=== PATIENT | female | born 1955 | race Caucasian/White ===

== ENCOUNTER → 2017-06-29 | Outpatient (CLI) | payer SELFPAY | PROVIDERS: Visit Provider Orthopaedic Surgery | DX: Z48.89 Encounter for other specified surgical aftercare (principal) | CPT/HCPCS: 73502 ==

== ENCOUNTER → 2017-12-10 07:29 | Outpatient (CLI) | payer SELFPAY ==
--- NOTE | 2017-12-10 07:36 | NVE_ITS ---
Venous Exam Indications: 729.5 Pain in limb. Patient denies trauma and states that her left leg began swelling and was painful beginning on 12/08/17. Palpable knots felt on the posterior and lateral aspect of left calf in varicose veins. IMPRESSIONS 1. No evidence of deep vein thrombosis involving the left lower extremity 2. Small superficial vein thrombosis involving the superficial varicose veins of the left lower extremity on the posterior, lateral aspect. History: Left lower extremity pain. Swelling of the left lower extremity. Varicose veins of the left lower extremity. Risk factors: Hypertension. Left lower extremity venous duplex evaluation. Doppler flow study including spectral analysis, color and sparrow scale imaging. Location: Vascular laboratory. Patient status: Outpatient. CRITICAL FINDINGS - Reported to: Dr. Obdulio Roa office - Read back and verified. - 12/10/17 - 08:30 - LLE SVT in varicose veins Tables: Venous flow and imaging: + +-------+ + Location Overall Flow properties + +-------+ + Left common femoral Patent Normal phasicity; spontaneous; normal augmentation; compressible + +-------+ + Left saphenofemoral junction Patent Compressible + +-------+ + Left profunda femoral Patent Compressible + +-------+ + Left femoral Patent Normal phasicity; spontaneous; normal augmentation; compressible + +-------+ + Left greater saphenous Patent Normal phasicity; spontaneous; normal augmentation; compressible + +-------+ + Left popliteal Patent Normal phasicity; spontaneous; normal augmentation; compressible + +-------+ + Left posterior tibial Patent Compressible + +-------+ + Left peroneal Patent Compressible + +-------+ + Left gastrocnemius Patent Compressible + +-------+ + Left soleal Patent Compressible + +-------+ + (Report amended ) Electronically signed by: Tong Posadas [id number]
== END ==
PROVIDERS: Family Provider Internal Medicine; PCP Internal Medicine; Visit Provider Internal Medicine
DX: M79.605 Pain in left leg (principal); M79.89 Other specified soft tissue disorders
CPT/HCPCS: 93971

== ENCOUNTER 2018-11-08 09:53 | Emergency (ER) | payer MEDICARE, OTHER, SELFPAY ==
[2018-11-08 09:59] VITALS: BP 166/92; PULSE 79; RESP 16; TEMP 36.5; O2SAT 97; BMI 27.6
[2018-11-08 10:05] VITALS: BP 166/92; PULSE 79; RESP 16; TEMP 36.5; O2SAT 97; BMI 27.6
--- NOTE | 2018-11-08 10:21 | HMH.EDUTC ---
[facility] [place] [facility] [place] Clinical Impression: Low back pain Qualifiers: Chronicity: unspecified Back pain laterality: left Sciatica presence: without sciatica Qualified Code(s): M54.5 - Low back pain UTI (urinary tract infection) Qualifiers: Urinary tract infection type: site unspecified Hematuria presence: without hematuria Qualified Code(s): N39.0 - Urinary tract infection, site not specified Disposition: Home, Self-Care Condition on Discharge: Good Instructions: DI for Chronic Pain -- Adult, Low Back Pain, DI for Low Back Pain, Etodolac, Nitrofurantoin, Urinary Tract Infection, Urine Culture Additional Instructions: *Increase fluids. Water not Soda or Tea *Start antibiotic immediately and be sure to take as ordered for the FULL length of time although you should start to see improvement over the next 48 hours *Pyridium as needed Remember this medication will turn your urine [place]. This is normal but it will stain what ever it gets on *You should not use Pyridium for more than 48 hours. If so , follow up with your primary physician to review urine culture and ensure that antibiotic is adequate for infection *Be SURE to follow up anytime for new or worsening symptoms with your family doctor. AND in 48 hours for urine culture results with your family doctor, if you do not have a doctor then you may call back to the [facility] for urine culture results and further treatment. We do recommend that you choose and establish care with a Primary Care Physician. AND follow up with them in 10-14 days to repeat UA to ensure infection is resolved and blood no longer present *Be sure to let your PCP know that we sent urine cultures from the [facility] so they can follow up to ensure that you area the on the correct antibiotic Call your doctor office and make appointment for 48 hours (2 days from today) to follow up and get the results of your urine culture and further treatment *Etodolac aydee 6 hours with meal as needed for pain/inflammation *Not additional anti-inflammatory like motrin, aleve, advil with the above amount of etodolac. You can still take Tylenol every 4 hours as needed if you need something else for pain * moist heat every 20 minutes 3-4 times a day to affected area Keep this area active, no movement leads to more stiffness, However take it easy and avoid heavy lifting pushing or pulling *Follow up with you family doctor if no improvement for further treatment and further evaluation of xray findings Prescriptions: Etodolac [Etodolac 200mg Cap] 200 mg PO Q6HP PRN #20 cap PRN Reason: Moderate Pain Nitrofurantoin Monohyd/M-Cryst [Macrobid 100 mg Capsule] 100 mg PO BID #14 cap Referrals: Miguel Mak [Primary Care Provider] - As needed Time of Disposition: 11:23 Medical Decision Making - [place] Inquiry Pt receiving controlled substance: No [place] was queried for this patient: No Vital Signs: 11/08/18 09:59 11/08/18 10:05 Temperature 97.7 F 97.7 F Temperature Source Oral Oral Pulse Rate [Left Radial] 79 79 Respiratory Rate 16 16 Blood Pressure [Right Arm] 166/92 H 166/92 H Blood Pressure Mean [Right Arm] 116 116 Blood Pressure Source [Right Arm] Automatic Cuff Automatic Cuff Blood Pressure Position [Right Arm] Sitting Sitting 02 Sat by Pulse Oximetry 97 97 Oxygen Delivery Method Room Air Room Air - Lab Data Lab Results 11/08/18 10:52: Urine Color Yellow, Urine Appearance Clear, Urine pH 6.0, Ur Specific [place] 1.025, Urine Protein Negative, Urine Glucose (UA) Negative, Urine Ketones Negative, Urine Blood 1+, Urine Nitrate Negative, Urine Bilirubin Negative, Urine Urobilinogen 0.2, Ur Leukocyte Esterase Trace Orders (Tests/Meds): ORDERS Category Date Time Status Urine Culture Stat Micro 11/08/18 10:59 Ordered - Radiology Data #1 Image(s): L-Spine Image Reviewed: Yes I have reviewed radiologist's interpretation IMPRESSION: 1. Lumbar spondylosis with scoliosis and multilevel degenerative disc disease and facet art
--- NOTE | 2018-11-08 10:23 | XR_ITS ---
EXAM: XR lumbar spine 2-3V HISTORY: ITS.REASON: left side lower back pain ORDERING PHYSICIAN: Lucy Nair APRN PATIENT AGE: 63 years COMPARISON: 08/23/2018 FINDINGS: Levoscoliosis of the lumbar spine is noted with multilevel degenerative disc disease. There is 6 mm anterolisthesis of L3 on L4 with degenerative disc disease at that level. There is moderate wedging of L1 which has slightly increased since the previous exam. There is 50% wedge compression changes of L1 anteriorly with kyphosis at that level. Facet arthritic changes are also noted in the lower lumbar spine. Faint calcifications are present in the right upper quadrant consistent with gallstones. There is an old right rib fracture and old left 10th rib fracture. There is generalized vascular calcification. IMPRESSION: 1. Lumbar spondylosis with scoliosis and multilevel degenerative disc disease and facet arthritic change. 2. Slight increase wedge compression changes of L2. 3. Cholelithiasis
--- NOTE | 2018-11-08 10:25 | ED_ITS ---
[facility] – [place] Disposition Clinical Impression: Low back pain Qualifiers: Chronicity: unspecified Back pain laterality: left Sciatica presence: without sciatica Qualified Code(s): M54.5 - Low back pain UTI (urinary tract infection) Qualifiers: Urinary tract infection type: site unspecified Hematuria presence: without hematuria Qualified Code(s): N39.0 - Urinary tract infection, site not specified Disposition: Home, Self-Care Condition on Discharge: Good Instructions: DI for Chronic Pain -- Adult, Low Back Pain, DI for Low Back Pain, Etodolac, Nitrofurantoin, Urinary Tract Infection, Urine Culture Additional Instructions: *Increase fluids. Water not Soda or Tea *Start antibiotic immediately and be sure to take as ordered for the FULL length of time although you should start to see improvement over the next 48 hours *Pyridium as needed Remember this medication will turn your urine [place]. This is normal but it will stain what ever it gets on *You should not use Pyridium for more than 48 hours. If so , follow up with your primary physician to review urine culture and ensure that antibiotic is adequate for infection *Be SURE to follow up anytime for new or worsening symptoms with your family doctor. AND in 48 hours for urine culture results with your family doctor, if you do not have a doctor then you may call back to the [facility] for urine culture results and further treatment. We do recommend that you choose and establish care with a Primary Care Physician. AND follow up with them in 10-14 days to repeat UA to ensure infection is resolved and blood no longer present *Be sure to let your PCP know that we sent urine cultures from the [facility] so they can follow up to ensure that you area the on the correct antibiotic Call your doctor office and make appointment for 48 hours (2 days from today) to follow up and get the results of your urine culture and further treatment *Etodolac aydee 6 hours with meal as needed for pain/inflammation *Not additional anti-inflammatory like motrin, aleve, advil with the above luis unt of etodolac. You can still take Tylenol every 4 hours as needed if you need something else for pain * moist heat every 20 minutes 3-4 times a day to affected area Keep this area active, no movement leads to more stiffness, However take it easy and avoid heavy lifting pushing or pulling *Follow up with you family doctor if no improvement for further treatment and further evaluation of xray findings Prescriptions: Etodolac [Etodolac 200mg Cap] 200 mg PO Q6HP PRN #20 cap PRN Reason: Moderate Pain Nitrofurantoin Monohyd/M-Cryst [Macrobid 100 mg Capsule] 100 mg PO BID #14 cap Referrals: Mgiuel Mak [Primary Care Provider] - As needed Time of Disposition: 11:23 Medical Decision Making - [place] Inquiry Pt receiving controlled substance: No [place] was queried for this patient: No Vital Signs: 11/08/18 09:59 11/08/18 10:05 Temperature 97.7 F 97.7 F Temperature Source Oral Oral Pulse Rate [Left Radial] 79 79 Respiratory Rate 16 16 Blood Pressure [Right Arm] 166/92 H 166/92 H Blood Pressure Mean [Right Arm] 116 116 Blood Pressure Source [Right Arm] Automatic Cuff Automatic Cuff Blood Pressure Position [Right Arm] Sitting Sitting 02 Sat by Pulse Oximetry 97 97 Oxygen Delivery Method Room Air Room Air - Lab Data Lab Results 11/08/18 10:52: Urine Color Yellow, Urine Appearance Clear, Urine pH 6.0, Ur Specific [place] 1.025, Urine Protein Negative, Urine Glucose (UA) N
[2018-11-08 10:58] LABS: Apearance,Urine Clear (Clear); Color,Urine Yellow (Yellow)
[2018-11-08 10:59] LABS: Bilirubin,Urine Negative (Negative); Blood, Urine 1+ (Negative); Glucose,Urine (UA) Negative (Negative); Ketones,Urine Negative (Negative); Protein,Urine Negative (Negative); Specific Gravity, Urine 1.025 (1.005-1.030); UTC Leukocyte Esterase,Urine Trace (Negative); UTC Nitrate,Urine Negative (Negative); Urobilinogen,Urine 0.2 EU/dl (0.2)
[2018-11-08 11:27] VITALS: BP 166/92; PULSE 79; RESP 16; TEMP 36.5; O2SAT 97
== END 2018-11-08 11:36 | disposition home or self-care (01) ==
PROVIDERS: Emergency Provider Nurse Practitioner; PCP Internal Medicine
DX: N30.00 Acute cystitis without hematuria (principal)
CPT/HCPCS: 72100; 81003; 87086; 99202

== ENCOUNTER 2018-11-08 21:51 | Emergency (ER) | payer MEDICARE, OTHER, SELFPAY ==
[2018-11-08 21:57] VITALS: BMI 28.7
--- NOTE | 2018-11-08 21:57 | CT_ITS ---
CT abdomen pelvis wo con CLINICAL INDICATION: Vomiting, abdominal pain, left flank pain with vomiting ITS.REASON: Left flank pain ORDERING PHYSICIAN: Carlos Velasco MD PATIENT AGE: 63 years COMPARISON: None TECHNIQUE: Axial images obtained with sagittal and coronal reformats. All CT scans at the facility use one or more dose reduction, viz: automated exposure control, ma/kV adjustment per patient size (including targeted exams where dose is matched to indication, i.e. head), or iterative reconstruction technique. PROCEDURE: Oral Contrast: None IV Contrast: None . FINDINGS: There are mild atelectatic changes in the left lung base. Multiple gallstones are present within the mildly distended gallbladder. The liver, spleen, adrenal glands, and pancreas have an unremarkable unenhanced appearance. No renal or ureteral calculi. 12 mm isodense involves the right kidney posteriorly consistent with a renal cyst. Calcification involves the aortoiliac vessels with minimal dilatation of the right common iliac and 1.8 cm. No intestinal obstruction or free air. Artifact is present from left hip prosthesis. There is diverticulosis of the sigmoid colon but no evidence of diverticulitis. The appendix has an unremarkable appearance. There are degenerative changes of the lumbar spine with moderate wedging of L1 with osteosclerosis of L1 and mild retrolisthesis of the posterior superior aspect of L1. This which appears chronic. IMPRESSION: 1. Cholelithiasis with mildly distended gallbladder. 2. No renal or ureteral calculi.
[2018-11-08 22:05] LABS: Microscopic, Urine URINE MICROSCOPIC (MICROSCOPIC)
[2018-11-08 22:06] LABS: Appearance,Urine CLEAR (Clear); Blood, Urine TRACE-I (Negative); Color,Urine YELLOW (Yellow); Glucose,Urine (UA) Negative (Negative); Ketones,Urine TRACE (Negative); Leukocyte Esterase,Urine TRACE (Negative); Nitrate,Urine Negative (Negative); Protein,Urine Negative (Negative); Urobilinogen,Urine 0.2 EU/dl (0.2)
[2018-11-08 22:10] LABS: Bilirubin,Urine Negative (Negative)
[2018-11-08 22:15] LABS: Basophils % 0.4 % (0.1-2.0); Eosinophils # 0.1 K/mm3 (0.0-0.4); Eosinophils % 1.4 % (0.1-12.0); Hematocrit 38.9 % (37.0-47.0); Hemoglobin 12.9 g/dL (12.2-16.2); Lymphocytes # 1.9 K/mm3 (0.7-4.5); Lymphocytes % 18.5 % (10-50); Mean Corpuscular HGB Conc 33.1 g/dL (31.8-35.4); Mean Corpuscular Hemoglobin 29.9 pg (27.0-31.2); Mean Corpuscular Volume 90.2 fl (81-99); Mean Platelet Volume 7.6 fl (7.4-10.4); Monocytes # 0.7 K/mm3 (0.1-1.0); Monocytes % 6.4 % (1.7-9.3); Neutrophils # 7.6 K/mm3 (1.8-7.8); Neutrophils % 73.4 % (37.0-80.0); Platelet Count 292 K/mm3 (142-424); Red Blood Count 4.31 M/mm3 (4.20-5.40); Red Cell Distribution Width 13.3 % (11.5-17.5); White Blood Count 10.4 K/mm3 (4.8-10.8)
[2018-11-08 22:28] LABS: Alanine Aminotransferase 18 U/L (12-78); Albumin Level 3.9 gm/dL (3.4-5.0); Albumin/Globulin Ratio 1.1 (1.1-1.8); Alkaline Phosphatase 79 U/L (46-116); Amylase 99 U/L (25-115); Anion Gap 9.8 mEq/L (5-15); Aspartate Amino Transferase 15 U/L (15-37); Bilirubin,Total 0.6 mg/dL (0.2-1.0); Blood Urea Nitrogen 22 mg/dL (7-18); C-Reactive Protein 5.4 mg/L (0.0-0.9); Calcium 8.9 mg/dL (8.5-10.1); Carbon Dioxide 31 mmol/L (21.0-32.0); Chloride 100 mmol/L (98-107); Creatinine Clearance Estimated 71 mL/min (50-200); Creatinine,Serum 0.93 mg/dL (0.55-1.02); Estimated Glomerular Filt Rate 61 ml/min (>60); GFR (African American) 73 ML/MIN (>60); Globulin 3.6 gm/dl (1.3-3.2); Glucose 101 mg/dL (74-106); Lipase 150 u/L (73-393); Potassium 3.8 mmoL/L (3.5-5.1); Sodium 137 mmol/L (136-145); Total Protein,Serum 7.5 gm/dL (6.4-8.2)
[2018-11-08 22:31] LABS: Lactic Acid 0.9 mmol/L (0.4-2.0)
[2018-11-08 22:42] VITALS: BP 136/84; PULSE 84; RESP 16; TEMP 37.1; O2SAT 94; BMI 28.7
[2018-11-08 22:56] LABS: Erythrocyte Sedimentation Rate 19 mm/hr (0-30)
--- NOTE | 2018-11-09 00:17 | HMH.EDUROGF ---
ED Disposition Clinical Impression: Acute flank pain Disposition: Home, Self-Care Condition on Discharge: Good Instructions: DI for Flank Pain Additional Instructions: use meds and see pcp and follow up on urine culture Referrals: Miguel Mak [Primary Care Provider] - - Critical Care Critical Care Time: No Attestation: On 11/08/18, the high probability of a clinically significant, sudden or life threatening deterioration of the following system(s) required my full and direct attention, intervention and personal management. The time I documented below is in addition to time spent performing reported procedures but includes the following listed in this critical care notation. Medical Decision Making - Medical Records Medical records reviewed: Yes: I reviewed the patient's medical records. - [place] Inquiry Pt receiving controlled substance: No Vital Signs: 11/08/18 22:42 Temperature 98.8 F Temperature Source Oral Pulse Rate [Right] 84 Respiratory Rate 16 Blood Pressure [Right Arm] 136/84 Blood Pressure Mean [Right Arm] 101 Blood Pressure Source [Right Arm] Automatic Cuff Blood Pressure Position [Right Arm] Supine 02 Sat by Pulse Oximetry 94 L Oxygen Delivery Method Room Air - Lab Data Lab results reviewed: Yes: I reviewed the patient's lab results. Lab Results 11/08/18 22:00: Urine Color Yellow, Urine Appearance Clear, Urine pH 6.0, Ur Specific [place] 1.020, Urine Protein Negative, Urine Glucose (UA) Negative, Urine Ketones Trace, Urine Blood Trace-i, Urine Nitrate Negative, Urine Bilirubin Negative, Urine Urobilinogen 0.2, Ur Leukocyte Esterase Trace, Urine RBC 5-10, Urine WBC 3-5, Ur Squamous Epith Cells 5-10 11/08/18 22:05: WBC 10.4, RBC 4.31, Hgb 12.9, Hct 38.9, MCV 90.2, MCH 29.9, MCHC 33.1, RDW 13.3, Plt Count 292, MPV 7.6, Neut % (Auto) 73.4, Lymph % (Auto) 18.5, [place] % (Auto) 6.4, Eos % (Auto) 1.4, Baso % (Auto) 0.4, Neut # (Auto) 7.6, Lymph # (Auto) 1.9, [place] # (Auto) 0.7, Eos # (Auto) 0.1, Baso # (Auto) 0.0, ESR 19 11/08/18 22:05: Sodium 137, Potassium 3.8, Chloride 100, Carbon Dioxide 31, Anion Gap 9.8, BUN 22 H, Creatinine 0.93, Estimated Creat Clear 71, Estimated GFR 61, Est GFR ( Amer) 73, Glucose 101, Calcium 8.9, Total Bilirubin 0.6, AST 15, ALT 18, Alkaline Phosphatase 79, C-Reactive Protein 5.4 H, Total Protein 7.5, Albumin 3.9, Globulin 3.6 H, Albumin/Globulin Ratio 1.1, Amylase 99, Lipase 150 11/08/18 22:05: Lactate 0.9 Result diagrams: 11/08/18 22:05 11/08/18 22:05 Orders (Tests/Meds): ED MEDICATIONS Generic Name Dose Route Start Last Admin Trade Name Freq PRN Reason Stop Dose Admin Sodium Chloride 1,000 mls @ 999 mls/hr 11/08/18 22:30 11/08/18 22:20 Sod Chlor 0.9% 1000ml Bag IV 11/08/18 23:30 999 mls/hr .Q1H1M MELITON Administration Discontinued Medications Generic Name Dose Route Start Last Admin Trade Name Freq PRN Reason Stop Dose Admin Morphine Sulfate 4 mg 11/08/18 22:18 11/08/18 22:20 Morphine 4mg/Ml Syringe IV 11/08/18 22:19 4 mg ONCE ONE Administration Ondansetron HCl 4 mg 11/08/18 22:18 11/08/18 22:20 Zofran 4mg/2ml Vial IV 11/08/18 22:19 4 mg ONCE ONE Administration ORDERS Category Date Time Status CT abdomen pelvis wo con Stat Cat Scan 11/08/18 21:57 Taken - CT Data CT Scan: Abdomen, Pelvis Time Received: 00:[address] Reviewed: Yes: I have viewed the radiologist's interpretation Preliminary Findings: Abnormal (see report) Female Urogenital HPI - General Chief complaint: Abdominal Pain Stated complaint: vomiting/pain in kidneys Time Seen by Provider: 11/09/18 00:00 Mode of Arrival: Ambulatory Source of Information: Patient, Spouse, Medical Record Limitations: No Limitations Description of Symptoms (Recalled from ER Triage Doc. by RN): Pt seen here for same this AM has appointment to F/U with Dr Mak continues to be in pain to left flank - History of Present Illness HPI Narrative: lt fl
--- NOTE | 2018-11-09 00:20 | ED_ITS ---
ED Disposition Clinical Impression: Acute flank pain Disposition: Home, Self-Care Condition on Discharge: Good Instructions: DI for Flank Pain Additional Instructions: use meds and see pcp and follow up on urine culture Referrals: Miguel Mak [Primary Care Provider] - - Critical Care Critical Care Time: No Attestation: On 11/08/18, the high probability of a clinically significant, sudden or life threatening deterioration of the following system(s) required my full and direct attention, intervention and personal management. The time I documented below is in addition to time spent performing reported procedures but includes the following listed in this critical care notation. Medical Decision Making - Medical Records Medical records reviewed: Yes: I reviewed the patient's medical records. - [place] Inquiry Pt receiving controlled substance: No Vital Signs: 11/08/18 22:42 Temperature 98.8 F Temperature Source Oral Pulse Rate [Right] 84 Respiratory Rate 16 Blood Pressure [Right Arm] 136/84 Blood Pressure Mean [Right Arm] 101 Blood Pressure Source [Right Arm] Automatic Cuff Blood Pressure Position [Right Arm] Supine 02 Sat by Pulse Oximetry 94 L Oxygen Delivery Method Room Air - Lab Data Lab results reviewed: Yes: I reviewed the patient's lab results. Lab Results 11/08/18 22:00: Urine Color Yellow, Urine Appearance Clear, Urine pH 6.0, Ur Specific [place] 1.020, Urine Protein Negative, Urine Glucose (UA) Negative, Urine Ketones Trace, Urine Blood Trace-i, Urine Nitrate Negative, Urine Bilirubin Negative, Urine Urobilinogen 0.2, Ur Leukocyte Esterase Trace, Urine RBC 5-10, Urine WBC 3-5, Ur Squamous Epith Cells 5-10 11/08/18 22:05: WBC 10.4, RBC 4.31, Hgb 12.9, Hct 38.9, MCV 90.2, MCH 29.9, MCHC 33.1, RDW 13.3, Plt Count 292, MPV 7.6, Neut % (Auto) 73.4, Lymph % (Auto) 18.5, [place] % (Auto) 6.4, Eos % (Auto) 1.4, Baso % (Auto) 0.4, Neut # (Auto) 7.6, Lymph # (Auto) 1.9, [place] # (Auto) 0.7, Eos # (Auto) 0.1, Baso # (Auto) 0.0, ESR 19 11/08/18 22:05: Sodium 137, Potassium 3.8, Chloride 100, Carbon Dioxide 31, Anion Gap 9.8, BUN 22 H, Creatinine 0.93, Estimated Creat Clear 71, Estimated GFR 61, Est GFR ( Amer) 73, Glucose 101, Calcium 8.9, Total Bilirubin 0.6, AST 15, ALT 18, Alkaline Phosphatase 79, C-Reactive Protein 5.4 H, Total Protein 7.5, Albumin 3.9, Globulin 3.6 H, Albumin/Globulin Ratio 1.1, Amylase 99, Lipase 150 11/08/18 22:05: Lactate 0.9 Result diagrams: 11/08/18 22:05 11/08/18 22:05 Orders (Tests/Meds): ED MEDICATIONS Generic Name Dose Route Start Last Admin Trade Name Freq PRN Reason Stop Dose Admin Sodium Chloride 1,000 mls @ 999 mls/hr 11/08/18 22:30 11/08/18 22:20 Sod Chlor 0.9% 1000ml Bag IV 11/08/18 23:30 999 mls/hr .Q1H1M MEL[place]ON Administration Discontinued Medications Generic Name Dose Route Start Last Admin Trade Name Freq PRN Reason Stop Dose Admin Morphine Sulfate 4 mg 11/08/18 22:18 11/08/18 22:20 Morphine 4mg/Ml Syringe IV 11/08/18 22:19 4 mg ONCE ONE Administration Ondansetron HCl 4 mg 11/08/18 22:18 11/08/18 22:20 Zofran 4mg/2ml Vial IV 11/08/18 22:19 4 mg ONCE ONE Administration
[2018-11-09 00:26] VITALS: BP 140/80; PULSE 86; RESP 16; TEMP 37.1; O2SAT 96
== END 2018-11-09 00:38 | disposition home or self-care (01) ==
PROVIDERS: Emergency Provider Emergency Medicine; PCP Internal Medicine
DX: R10.12 Left upper quadrant pain (principal)
CPT/HCPCS: 72100; 74176; 80053; 81001; 81003; 82150; 83605; 83690; 85025; 85651; 86140; 87086; 96365; 96375; 99202; 99283; J2405

== ENCOUNTER → 2018-11-20 14:57 | Outpatient (CLI) | payer MEDICARE, OTHER, SELFPAY ==
--- NOTE | 2018-11-20 15:00 | MR_ITS ---
MR lumbar spine wo con, MR 3-d myelogram/MRCP HISTORY: Pt states low back pain on right and left side. Pain X 6 months. ITS.REASON: LOW BACK PAIN ORDERING PHYSICIAN: Miguel Mak PATIENT AGE: 63 years Comparison: X-Ray 11/08/18 TECHNIQUE: Standard multiplanar multiecho sequences are performed without contrast. 3-D MIP and myelographic images are also rendered and reviewed FINDINGS: The spinal cord is at the L2 level. Mild lumbar scoliosis convex left T10-T11: Degenerative disc disease with bulging disc. T11-T12: Degenerative disc disease with bulging disc with facet and ligamentum flavum hypertrophy. T12-L1: Degenerative disc disease with bulging disc. There is 50% wedge compression changes of L1 with bone marrow edema the posterior superior aspect of L1 of 4 mm. Facet and ligamentum flavum hypertrophy are noted with bilateral foraminal lateral recess narrowing. No cord compression. Type I. Endplate changes are present at T12-L1 anteriorly L1-L2: General disc disease with bulging disc with facet and ligamentum flavum hypertrophy with bilateral lateral recess and foraminal narrowing. L2-L3: Degenerative disc disease with bulging disc along with moderate to severe facet and ligamentum flavum hypertrophy with bilateral lateral recess and foraminal narrowing. There is transverse narrowing of the canal at this level at 10 mm. L3-L4: 5 mm anterolisthesis of L3 with degenerative disc disease and bulging disc with moderate to severe facet and ligamentum flavum hypertrophy with canal stenosis and moderate to severe bilateral lateral recess narrowing and bilateral foraminal narrowing. L4-L5: Degenerative disc disease with bulging disc along with facet and ligamentum flavum hypertrophy with mild bilateral lateral recess and foraminal narrowing. L5-S1: Degenerative disc disease with bulging disc with facet and ligamentum flavum hypertrophy. There is severe left-sided foraminal narrowing.. IMPRESSION: Abnormal MRI of lumbar spine. There is multilevel degenerative disc disease along with facet and ligamentum flavum hypertrophy with canal stenosis and bilateral lateral recess and foraminal narrowing. PLEASE SEE ABOVE FOR DETAILED DESCRIPTION AT EACH LEVEL. 50% wedge compression changes of L1 with some bone marrow edema. The wedge compression changes. Appear slightly greater on the previous plain film.
== END ==
PROVIDERS: PCP Internal Medicine; Visit Provider Internal Medicine
DX: M54.42 Lumbago with sciatica, left side (principal)
CPT/HCPCS: 72148; 76376

== ENCOUNTER → 2018-11-28 10:05 | Outpatient (POV) | payer MEDICARE, OTHER, SELFPAY ==
[2018-11-28 10:36] VITALS: BP 132/78; PULSE 74; RESP 18; O2SAT 98
--- NOTE | 2018-11-28 10:45 | HMH.PMCON ---
Assessment and Plan (1) Closed compression fracture of body of L1 vertebra Current visit: Yes Status: Acute Category: Medical Code(s): S32.010A - Wedge compression fracture of first lumbar vertebra, initial encounter for closed fracture - Assessment and plan all Dx Assessment and Plan for all problems:: We will order her back brace to help with her pain symptoms. We will also seek approval for a L1 balloon kyphoplasty. HPI - Data of Consult Patient: new to practice Consult date: 11/28/18 Requesting Physician: Devante Christianson MD Primary Care Provider: Miguel Mak - Consult Narrative Reason for consult: Compression fracture History of present illness: Ms. Snow is a 63 year old female who has a long history of osteoporosis and degenerative changes throughout the lumbar spine. 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 She has had a fall and fractured her right hip. She is had surgery on this.She is probably needing a knee replacement and possibly a hip replacement. She does not recall a recent fall however is noticed acute increase in mid to low back pain. On MRI dated 11/20/2018 there is a L1 compression fracture with 50% wedge compression changes and bone marrow edema indicative of an acute compression fracture. She also has facet and ligamentum hypertrophy noted at this level as well. We will order bracing for her and seek approval for L1 kyphoplasty. CC: Devante Christianson MD [facility] History I have reviewed the patient's past medical history: Yes Medical History: Reports:: Hypertension Denies:: Cancer, Diabetes Mellitus Type 1, Diabetes Mellitus Type 2, MRSA *Have you ever received a pneumonia vaccine?: No *Have you received a flu vaccine this season?: Yes Amputation: No Fractures: No - *Social History Smoking Status: Current every day smoker Tobacco Type: e-cigarettes # Packs/Day (cigarettes): 1 Alcohol Intake: never *Occupational Status:: retired Housing: house *Travel in the last 8 weeks: None - Psychiatric History Expresses thoughts of harming self/others: None Suicide Plan Description: No Plan Family Hx:: No significant family history Review of Systems - Review of Systems Review of systems:: pertinent systems reviewed and negative unless documented below - *Musculoskeletal Reports abnormal walking, Reports back pain Meds Home Medications Medication Instructions Recorded Confirmed Type Alendronate Sodium [Alendronate 70 mg PO . 11/28/18 11/28/18 History 35mg Tablet] Amlodipine Besylate [Amlodipine 5 mg PO DAILY 11/28/18 11/28/18 History 5mg tab] Gabapentin [Gabapentin 300mg Cap] 600 mg PO TID 11/28/18 11/28/18 History Levothyroxine Sodium 175 mcg PO DAILY 11/28/18 11/28/18 History [Levothyroxine 175mcg (0.175mg) Tab] Lisinopril/Hydrochlorothiazide 1 tab PO DAILY 11/28/18 11/28/18 History [Lisinopril-Hctz 20-12.5 mg Tab] Allergies Allergy/AdvReac Type Severity Reaction Status Date / Time No Known Allergies Allergy Verified 11/28/18 10:40 Objective Vital signs: Pulse Resp BP Pulse Ox 74 18 132/78 98 11/28/18 10:36 11/28/18 10:36 11/28/18 10:36 11/28/18 10:36 - Routine Back/Spine/Pelvis Exam Back/Spine: Present: vertebral tenderness Opioid Risk Tool - Opioid Risk Tool-Female Family hx alcohol abuse: N Family hx illegal drugs: N Family hx rx drug abuse: N Personal hx alcohol abuse: N Personal hx illegal drugs: N Personal hx rx drug abuse: N Age: 45+ Hx of sexual abuse: N Mental health issues-ADD,OCD,Bipolar, etc: N Hx of depression: N Female Risk Score: 0
--- NOTE | 2018-11-28 10:49 | P.CONS_ITS ---
Assessment and Plan (1) Closed compression fracture of body of L1 vertebra Current visit: Yes Status: Acute Category: Medical Code(s): S32.010A - Wedge compression fracture of first lumbar vertebra, initial encounter for closed fracture - Assessment and plan all Dx Assessment and Plan for all problems:: We will order her back brace to help with her pain symptoms. We will also seek approval for a L1 balloon kyphoplasty. HPI - Data of Consult Patient: new to practice Consult date: 11/28/18 Requesting Physician: Devante Christianson MD Primary Care Provider: Miguel Mak - Consult Narrative Reason for consult: Compression fracture History of present illness: Ms. Snow is a 63 year old female who has a long history of osteoporosis and degenerative changes throughout the lumbar spine. 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 She has had a fall and fractured her right hip. She is had surgery on this.She is probably needing a knee replacement and possibly a hip replacement. She does not recall a recent fall however is noticed acute increase in mid to low back pain. On MRI dated 11/20/2018 there is a L1 compression fracture with 50% wedge compression changes and bone marrow edema indicative of an acute compression fracture. She also has facet and ligamentum hypertrophy noted at this level as well. We will order bracing for her and seek approval for L1 kyphoplasty. CC: Devante Christianson MD [facility] History I have reviewed the patient's past medical history: Yes Medical History: Reports:: Hypertension Denies:: Cancer, Diabetes Mellitus Type 1, Diabetes Mellitus Type 2, MRSA *Have you ever received a pneumonia vaccine?: No *Have you received a flu vaccine this season?: Yes Amputation: No Fractures: No - *Social History Smoking Status: Current every day smoker Tobacco Type: e-cigarettes # Packs/Day (cigarettes): 1 Alcohol Intake: never *Occupational Status:: retired Housing: house *Travel in the last 8 weeks: None - Psychiatric History Expresses thoughts of harming self/others: None Suicide Plan Description: No Plan Family Hx:: No significant family history Review of Systems - Review of Systems Review of systems:: pertinent systems reviewed and negative unless documented below - *Musculoskeletal Reports abnormal walking, Reports back pain Meds Home Medications Medication Instructions Recorded Confirmed Type Alendronate Sodium [Alendronate 70 mg PO . 11/28/18 11/28/18 History 35mg Tablet] Amlodipine Besylate [Amlodipine 5 mg PO DAILY 11/28/18 11/28/18 History 5mg tab] Gabapentin [Gabapentin 300mg Cap] 600 mg PO TID 11/28/18 11/28/18 History Levothyroxine Sodium 175 mcg PO DAILY 11/28/18 11/28/18 History [Levothyroxine 175mcg (0.175mg) Tab] Lisinopril/Hydrochlorothiazide 1 tab PO DAILY 11/28/18 11/28/18 History [Lisinopril-Hctz 20-12.5 mg Tab] Allergies Allergy/AdvReac Type Severity Reaction Status Date / Time No Known Allergies Allergy Verified 11/28/18 10:40 Objective Vital signs: Pulse Resp BP Pulse Ox 74 18 132/78 98 11/28/18 10:36 11/28/18 10:36 11/28/18 10:36 11/28/18 10:36 - Routine Back/Spine/Pelvis Exam Back/Spine: Present: vertebral tenderness Opioid Risk Tool - Opioid
== END ==
PROVIDERS: PCP Internal Medicine; Visit Provider Anesthesiology
DX: S32.010A Wedge compression fracture of first lumbar vertebra, initial encounter for closed fracture (principal)
CPT/HCPCS: 99202

== ENCOUNTER 2018-12-06 17:22 | Emergency (ER) | payer MEDICARE, OTHER, SELFPAY ==
[2018-12-06 17:38] VITALS: BP 130/60; PULSE 96; RESP 20; TEMP 37; O2SAT 100; BMI 28.7
--- NOTE | 2018-12-06 17:38 | HMH.EDGENADL ---
ED Disposition <RizzoFritz - Last Filed: 12/06/18 19:48> Condition on Discharge: Good Time of Disposition: 22:14 - Critical Care Critical Care Time: No <LindseyCarlos - Last Filed: 12/06/18 22:15> Clinical Impression: Nausea & vomiting Disposition: Home, Self-Care Instructions: DI for Nausea -- Adult Referrals: Miguel Mak [Primary Care Provider] - Attestation: On 12/06/18, the high probability of a clinically significant, sudden or life threatening deterioration of the following system(s) required my full and direct attention, intervention and personal management. The time I documented below is in addition to time spent performing reported procedures but includes the following listed in this critical care notation. Medical Decision Making - Lab Data Result diagrams: 12/06/18 17:52 12/06/18 17:52 <Fritz Rizzo - Last Filed: 12/06/18 19:48> - Medical Records Medical records reviewed: Yes: I reviewed the patient's medical records. - [place] Inquiry Pt receiving controlled substance: No [place] was queried for this patient: No - Lab Data Lab results reviewed: Yes: I reviewed the patient's lab results. Result diagrams: 12/06/18 17:52 12/06/18 17:52 <Carlos Portillo - Last Filed: 12/06/18 22:15> Vital Signs: 12/06/18 17:38 12/06/18 17:54 12/06/18 18:43 Temperature 98.6 F Temperature Source Oral Pulse Rate [Left Radial] 96 H 103 H 75 Respiratory Rate 20 Blood Pressure [Right Arm] 130/60 138/93 H 169/89 H Blood Pressure Mean [Right Arm] 83 108 115 Blood Pressure Source [Right Arm] Automatic Cuff Blood Pressure Position [Right Arm] Sitting 02 Sat by Pulse Oximetry 100 96 95 Oxygen Delivery Method Room Air 12/06/18 20:27 12/06/18 21:00 Temperature 98.1 F Temperature Source Oral Pulse Rate [Left Radial] 68 61 Respiratory Rate 16 18 Blood Pressure [Right Arm] 134/87 Blood Pressure Mean [Right Arm] 102 Blood Pressure Source [Right Arm] Automatic Cuff Blood Pressure Position [Right Arm] Sitting 02 Sat by Pulse Oximetry 97 98 Oxygen Delivery Method Room Air Room Air - Lab Data Lab Results 12/06/18 17:52: WBC 14.0 H, RBC 4.97, Hgb 14.6, Hct 43.1, MCV 86.6, MCH 29.4, MCHC 33.9, RDW 13.1, Plt Count 348, MPV 7.1 L, Neut % (Auto) 82.4 H, Lymph % (Auto) 11.3, Ward % (Auto) 5.5, Eos % (Auto) 0.7, Baso % (Auto) 0.1, Neut # (Auto) 11.5 H, Lymph # (Auto) 1.6, Ward # (Auto) 0.8, Eos # (Auto) 0.1, Baso # (Auto) 0.0 12/06/18 17:52: Sodium 140, Potassium 3.3 L, Chloride 101, Carbon Dioxide 27, Anion Gap 15.3 H, BUN 25 H, Creatinine 0.80, Estimated Creat Clear 71, Estimated GFR 72, Est GFR ( Amer) 87, Glucose 119 H, Calcium 8.8, Total Bilirubin 0.6, AST 18, ALT 20, Alkaline Phosphatase 79, Troponin I < 0.02, Total Protein 7.4, Albumin 3.7, Globulin 3.7 H, Albumin/Globulin Ratio 1.0 L, Lipase 151 12/06/18 17:52: Lactate 1.3 12/06/18 19:47: Urine Color Yellow, Urine Appearance Clear, Urine pH 7.0, Ur Specific [place] 1.015, Urine Protein 1+, Urine Glucose (UA) Negative, Urine Ketones 1+, Urine Blood Trace-l, Urine Nitrate Negative, Urine Bilirubin Negative, Urine Urobilinogen 0.2, Ur Leukocyte Esterase Negative, Urine RBC 5-10, Urine WBC 5-10, Ur Squamous Epith Cells 3-5 Orders (Tests/Meds): ED MEDICATIONS Generic Name Dose Route Start Last Admin Trade Name Freq PRN Reason Stop Dose Admin Sodium Chloride 1,000 mls @ 999 mls/hr 12/06/18 17:45 12/06/18 17:50 Sod Chlor 0.9% 1000ml Bag IV 12/06/18 18:45 999 mls/hr .Q1H1M MELITON Administration Sodium Chloride 1,000 mls @ 999 mls/hr 12/06/18 20:30 12/06/18 20:26 Sod Chlor 0.9% 1000ml Bag IV 12/06/18 21:30 999 mls/hr .Q1H1M MELITON Administration Discontinued Medications Generic Name Dose Route Start Last Admin Trade Name Freq PRN Reason Stop Dose Admin Ondansetron HCl 4 mg 12/06/18 17:37 12/06/18 17:45 Zofran 4mg/2ml Vial IV 12/06/18 17:38 4 mg ONCE ONE Administration ORDERS Category Date Ti
[2018-12-06 17:54] VITALS: BP 138/93; PULSE 103; O2SAT 96
[2018-12-06 18:07] LABS: Basophils % 0.1 % (0.1-2.0); Eosinophils # 0.1 K/mm3 (0.0-0.4); Eosinophils % 0.7 % (0.1-12.0); Hematocrit 43.1 % (37.0-47.0); Hemoglobin 14.6 g/dL (12.2-16.2); Lymphocytes # 1.6 K/mm3 (0.7-4.5); Lymphocytes % 11.3 % (10-50); Mean Corpuscular HGB Conc 33.9 g/dL (31.8-35.4); Mean Corpuscular Hemoglobin 29.4 pg (27.0-31.2); Mean Corpuscular Volume 86.6 fl (81-99); Mean Platelet Volume 7.1 fl (7.4-10.4); Monocytes # 0.8 K/mm3 (0.1-1.0); Monocytes % 5.5 % (1.7-9.3); Neutrophils # 11.5 K/mm3 (1.8-7.8); Neutrophils % 82.4 % (37.0-80.0); Platelet Count 348 K/mm3 (142-424); Red Blood Count 4.97 M/mm3 (4.20-5.40); Red Cell Distribution Width 13.1 % (11.5-17.5)
[2018-12-06 18:17] LABS: Alanine Aminotransferase 20 U/L (12-78); Albumin Level 3.7 gm/dL (3.4-5.0); Alkaline Phosphatase 79 U/L (46-116); Anion Gap 15.3 mEq/L (5-15); Aspartate Amino Transferase 18 U/L (15-37); Bilirubin,Total 0.6 mg/dL (0.2-1.0); Blood Urea Nitrogen 25 mg/dL (7-18); Calcium 8.8 mg/dL (8.5-10.1); Carbon Dioxide 27 mmol/L (21.0-32.0); Chloride 101 mmol/L (98-107); Creatinine Clearance Estimated 71 mL/min (50-200); Estimated Glomerular Filt Rate 72 ml/min (>60); GFR (African American) 87 ML/MIN (>60); Globulin 3.7 gm/dl (1.3-3.2); Glucose 119 mg/dL (74-106); Lipase 151 u/L (73-393); Potassium 3.3 mmoL/L (3.5-5.1); Sodium 140 mmol/L (136-145); Total Protein,Serum 7.4 gm/dL (6.4-8.2); Troponin I < 0.02 ng/ml (0.00-0.06)
[2018-12-06 18:18] LABS: Lactic Acid 1.3 mmol/L (0.4-2.0)
[2018-12-06 18:43] VITALS: BP 169/89; PULSE 75; O2SAT 95
--- NOTE | 2018-12-06 19:33 | CT_ITS ---
CT abdomen pelvis wo con CLINICAL INDICATION: Nausea and vomiting with abdominal pain ITS.REASON: vomiting ORDERING PHYSICIAN: Fritz Rizzo MD PATIENT AGE: 63 years COMPARISON: None TECHNIQUE: Axial images obtained with sagittal and coronal reformats. All CT scans at the facility use one or more dose reduction, viz: automated exposure control, ma/kV adjustment per patient size (including targeted exams where dose is matched to indication, i.e. head), or iterative reconstruction technique. PROCEDURE: Oral Contrast: None IV Contrast: None . FINDINGS: Lower thorax: No acute finding ABDOMEN: The liver, spleen, adrenal glands, pancreas, and kidneys have an unremarkable unenhanced CT appearance. Gallbladder mildly distended with multiple stones. There is no stranding of the pericholecystic fat. Atherosclerotic changes involve the abdominal aorta with minimal ectasia of 2.3 cm.. No evidence of appendicitis. There is diverticulosis of the colon with no evidence of diverticulitis. Bowel gas pattern is nonspecific some fluid-filled loops of small bowel noted in the mid pelvic region and could be related to enteritis. Prior left hip arthroplasty with cannulated screw placement in the right hip. Prior L1 kyphoplasty with underlying anterior wedge compression deformity of L1 and 4 mm retropulsion of the posterior superior aspect. There is some extraosseous methylmethacrylate in the right lateral recess and mild local mass effect upon the thecal sac. There is anterolisthesis of L3 on L4 of 7 mm with canal stenosis at that level and bilateral lateral recess and foraminal narrowing. There is lumbar scoliosis convex left with left paravertebral osteophyte/bridging at T11-T12. IMPRESSION: 1. Possible enteritis. 2. Cholelithiasis with distended gallbladder. 3. Colonic diverticulosis. No evidence of diverticulitis. 4. Post kyphoplasty changes at L1 with wedging of L1 and retropulsion of the posterior superior aspect of L1 with some extraosseous methylmethacrylate noted in the right lateral recess.
[2018-12-06 19:52] LABS: Microscopic, Urine URINE MICROSCOPIC (MICROSCOPIC)
[2018-12-06 20:14] LABS: Appearance,Urine CLEAR (Clear); Blood, Urine TRACE-L (Negative); Color,Urine YELLOW (Yellow); Glucose,Urine (UA) Negative (Negative); Ketones,Urine 1+ (Negative); Leukocyte Esterase,Urine Negative (Negative); Nitrate,Urine Negative (Negative); Protein,Urine 1+ (Negative); Specific Gravity, Urine 1.015 (1.005-1.030); Urobilinogen,Urine 0.2 EU/dl (0.2)
[2018-12-06 20:15] LABS: Bilirubin,Urine Negative (Negative)
[2018-12-06 20:27] VITALS: BP 134/87; PULSE 68; RESP 16; TEMP 36.7; O2SAT 97
[2018-12-06 21:00] VITALS: PULSE 61; RESP 18; O2SAT 98
[2018-12-06 22:17] VITALS: BP 129/85; PULSE 61; RESP 18; TEMP 36.6; O2SAT 98
== END 2018-12-06 22:19 | disposition home or self-care (01) ==
PROVIDERS: Emergency Provider Emergency Medicine Emergency Medical Services; PCP Internal Medicine
DX: R11.2 Nausea with vomiting, unspecified (principal); I10 Essential (primary) hypertension; Z96.642 Presence of left artificial hip joint; F17.290 Nicotine dependence, other tobacco product, uncomplicated
CPT/HCPCS: 74176; 80053; 81001; 83605; 83690; 84484; 85025; 93005; 96365; 96366; 96375; 99284; J2405

== ENCOUNTER → 2018-12-23 11:02 | Outpatient (POV) | payer MEDICARE, OTHER, SELFPAY ==
[2018-12-23 11:17] VITALS: BP 132/75; PULSE 79; RESP 18; O2SAT 98; BMI 28.8
--- NOTE | 2018-12-23 11:32 | HMH.PAINSOAP ---
[facility] Pain Management SOAP Note Subjective:: Patient is a pleasant 63-year-old white female who presents today for follow-up after kyphoplasty. Patient states her pain is a 4 out of 10 however her severe back pain is completely resolved. Patient is now complaining of SI joint pain. Patient and I talked about anti-inflammatories. Patient would like to potentially do injections in the future however at this time she is doing well. ROS General: no recent weight change, no fever, no sleep disturbances Respiratory: no cough, no shortness of air, no recurring pulmonary infections Cardiovascular/Peripheral Vascular: No chest pain, No palpitations, no edema, no shortness of breath. Gastrointestinal: no incontinence, normal bowel movements reported Genitourinary: no incontinence Musculoskeletal: SI joint pain Psychiatric: normal mood/ affect Neurological: [denies weakness in extremities], [denies balance issues] Objective:: Physical Exam General: Alert and oriented x3, no acute distress, pleasant and cooperative, [on room air] Lungs: Resps E/U, Symmetrical chest expansion, Eyes: PERRL Musculoskeletal: Flexion and extension of lumbar spine somewhat guarded secondary to pain, deep tendon reflexes normal, strength in upper and lower extremities [5/5], [abnormal gait noted] SI joint compression test bilaterally Neurological: speech clear, manager hospice equal, no gross sensory deficits Assessment:: Status post kyphoplasty, sacral ileitis Plan:: We will follow-up with the patient on as-needed basis she is been instructed to call the office if she needs anything. Patient was given information in regards to NSAIDs. Dr. Christianson has reviewed this note and agrees with this plan of care. This note was dictated using voice recognition software and may contain errors or omissions
== END ==
PROVIDERS: PCP Internal Medicine; Visit Provider Clinical Nurse Specialist Family Health
DX: Z98.890 Other specified postprocedural states (principal); Z09 Encounter for follow-up examination after completed treatment for conditions other than malignant neoplasm; M46.1 Sacroiliitis, not elsewhere classified
CPT/HCPCS: 99212

== ENCOUNTER → 2019-02-17 11:15 | Outpatient (POV) | payer MEDICARE, OTHER, SELFPAY ==
--- NOTE | 2019-02-17 11:37 | HMH.PAINSOAP ---
[facility] Pain Management SOAP Note Subjective:: Patient is a pleasant 63-year-old white female who presents today for follow-up. Patient had a kyphoplasty and is done well since then however over the last few days she had extreme lower back pain. Notes better today. She rates her pain a 2 out of 10. We discussed anti-inflammatories and also discussed one with a stomach protectant and it due to her history of gastric issues. Patient will be given some samples of Vimovo. If she likes that we can call it in for her. Patient and I discussed getting some x-rays just to ensure that there is no new compression fractures. ROS General: no recent weight change, no fever, no sleep disturbances Respiratory: no cough, no shortness of air, no recurring pulmonary infections Cardiovascular/Peripheral Vascular: No chest pain, No palpitations, no edema, no shortness of breath. Gastrointestinal: no incontinence, normal bowel movements reported Genitourinary: no incontinence Musculoskeletal: Back pain Psychiatric: normal mood/ affect Neurological: [denies weakness in extremities], [denies balance issues] Objective:: Physical Exam General: Alert and oriented x3, no acute distress, pleasant and cooperative, [on room air] Lungs: Resps E/U, Symmetrical chest expansion, Eyes: PERRL Musculoskeletal: Flexion and extension of lumbar spine somewhat guarded secondary to pain, deep tendon reflexes normal, strength in upper and lower extremities [5/5], slightly antalgic gait noted Neurological: speech clear, dredge master equal, no gross sensory deficits Assessment:: Degenerative disc disease lumbar spine with history of compression fractures and status post kyphoplasty Plan:: We will send the patient for thoracic and lumbar x-ray to determine any new breaks. We will give her a sample of Vimovo to see if this is beneficial for her. Patient's been instructed to call the office if she has any issues prior to her next appointment. Dr. Christianson has reviewed this note and agrees with this plan of care. This note was dictated using voice recognition software and may contain errors or omissions Pain Management Hx Components *Have you ever received a pneumonia vaccine?: No *Have you received a flu vaccine this season?: No - *Social History *Occupational Status:: other *Travel in the last 8 weeks: None
[2019-02-17 11:43] VITALS: BP 136/78; PULSE 81; RESP 18; O2SAT 98
--- NOTE | 2019-02-17 11:58 | XR_ITS ---
PROCEDURE: XR THORACIC SPINE 3V CLINICAL INDICATION: BACK PAIN R/O FRACTURE COMPARISON: CXR CHEST(2 VIEWS-NOT PORTABLE) from 12/19/2016 SPLUMBLM XR lumbar spine 2-3V from 11/08/2018 XR LUMBAR SPINE MIN 4V from 02/17/2019 FINDINGS: Mild midthoracic scoliosis convex right with multilevel degenerative disc disease. No acute fracture of the thoracic spine evident. No lytic or blastic change. There is moderate wedging involving L1. Prior kyphoplasty at L1. IMPRESSION: Degenerate changes thoracic spine with dextroscoliosis Status post kyphoplasty at L1 with slight increase in wedge compression changes. There retropulsion of the posterior superior aspect of L1 with extrusion of methylmethacrylate along the anterior aspect of the canal. Consider CT for more thorough evaluation. Dictated by: Tong Posadas MD 02/18/2019 05:47 Signed by: <Electronically signed by Tong Posadas MD in [place]> 02/18/2019 05:47
--- NOTE | 2019-02-17 11:58 | XR_ITS ---
PROCEDURE: XR LUMBAR SPINE MIN 4V CLINICAL INDICATION: COMPARISON: SPLUMBLM XR lumbar spine 2-3V from 11/08/2018 TECHNIQUE: Five views FINDINGS: Mild lumbar curvature convex left. Multilevel degenerate disc disease from T10-S1. Moderate wedging at L1 slightly increased from 11/08/2018. Prior kyphoplasty at L1. Mild anterolisthesis L3 on L4 of 6 mm. Diffuse vascular calcification. Multiple small calcific foci in the right mid abdominal region consistent with gallstones. IMPRESSION: Status post kyphoplasty at L1 with slight increased wedging at L1. Multilevel degenerative changes. Cholelithiasis Dictated by: Tong Posadas MD 02/17/2019 16:49 Signed by: <Electronically signed by Tong Posadas MD in [place]> 02/17/2019 16:49
== END ==
LOC: SC.PAIN 11:16 → RAD 11:48
PROVIDERS: PCP Internal Medicine; Visit Provider Clinical Nurse Specialist Family Health
DX: M54.6 Pain in thoracic spine (principal); M54.5 Low back pain
CPT/HCPCS: 72072; 72110; 99212

== ENCOUNTER → 2019-02-24 14:41 | Outpatient (CLI) | payer MEDICARE, OTHER, SELFPAY ==
--- NOTE | 2019-02-24 14:46 | XR_ITS ---
PROCEDURE: XR FOOT WT BEARING LT 3V CLINICAL INDICATION: pain Arthritis COMPARISON: None FINDINGS: No fracture or dislocation. No lytic or blastic change. There is normal mineralization. There is moderate pes planus with severe osteoarthritic change of talonavicular joint, navicular cuneiform joint with mild osteoarthritis of the metatarsal tarsal joints. There is flattening of the navicular. Osteoarthritis of the 1st metatarsal phalangeal junction Other findings:No obvious fracture or dislocation. No bony destructive process IMPRESSION: Severe midfoot osteoarthritis with pes planus. There flattening of the navicular consistent with avascular necrosis Dictated by: Tong Posadas MD 02/24/2019 15:14 Signed by: <Electronically signed by Tong Posadas MD in [place]> 02/24/2019 15:14
--- NOTE | 2019-02-24 14:46 | XR_ITS ---
PROCEDURE: XR ANKLE WT BEARING RT MIN 3V CLINICAL INDICATION: pain Arthritis COMPARISON: No exams were available for comparison FINDINGS: There is an old fracture at the tip of the lateral malleolus with a well-circumscribed bony density at this area. The ankle joint shows mild osteoarthritic changes with slight decrease in the joint space and mild hypertrophic change of the anterior distal tibia. No acute fracture or dislocation. IMPRESSION: Mild osteoarthritis with old fracture of the distal fibula Dictated by: Tong Posadas MD 02/24/2019 15:17 Signed by: <Electronically signed by Tong Posadas MD in [facility]> 02/24/2019 15:17
--- NOTE | 2019-02-24 14:46 | XR_ITS ---
PROCEDURE: XR FOOT WT BEARING RT 3V CLINICAL INDICATION: pain Arthritis COMPARISON: No exams were available for comparison FINDINGS: No fracture or dislocation. No lytic or blastic change. There is normal mineralization. There are osteoarthritic changes at the tarsal metatarsal junction of digits 1 through 5. There are mild osteoarthritic changes of the navicular cuneiform joint and the talonavicular joint as well as the calcaneocuboid joint and the intercuneiform joints. No fracture or dislocation. Mild pes planus. Bony hypertrophy along the dorsal aspect of the midfoot at the tarsometatarsal junction. Flexion deformity involves the 2nd 3rd and 4th toes. Other findings:None. IMPRESSION: Osteoarthritic change with mild pes planus and hammertoe deformity Dictated by: Tong Posadas MD 02/24/2019 15:12 Signed by: <Electronically signed by Tong Posadas MD in [facility]> 02/24/2019 15:12
--- NOTE | 2019-02-24 14:46 | XR_ITS ---
PROCEDURE: XR ANKLE WT BEARING LT MIN 3V CLINICAL INDICATION: pain Bilateral feet and ankle pain, arthritis COMPARISON: No exams were available for comparison FINDINGS: Osteoarthritic changes are present at the ankle with decrease in the joint space and bony hypertrophic change along the medial malleolar region. There is an accessory center of ossification along the anterior aspect of the distal fibula. No acute fracture or dislocation. No lytic or blastic change. IMPRESSION: Mild osteoarthritis of the left ankle Dictated by: Tong Posadas MD 02/24/2019 15:10 Signed by: <Electronically signed by Tong Posadas MD in [facility]> 02/24/2019 15:10
== END ==
PROVIDERS: PCP Internal Medicine; Visit Provider Podiatrist
DX: M79.672 Pain in left foot (principal); M79.671 Pain in right foot; M25.572 Pain in left ankle and joints of left foot; M25.571 Pain in right ankle and joints of right foot
CPT/HCPCS: 73610; 73630

== ENCOUNTER → 2019-08-10 13:26 | Outpatient (CLI) | payer MEDICARE, OTHER, SELFPAY ==
--- NOTE | 2019-08-10 13:37 | XR_ITS ---
PROCEDURE: XR KNEE RT 3V CLINICAL INDICATION: RT KNEE PAIN COMPARISON: [id number] KNEE-4 OR 5 VIEWS-RT from 04/03/2017 FINDINGS: No fracture or dislocation. No lytic or blastic change. There is normal mineralization. There are tricompartmental osteoarthritic changes which are mild to moderate in nature. A oval lucency is present along the lateral femoral condyle consistent with an osteochondral defect. There is generalized vascular calcification. Other findings:None. IMPRESSION: Osteoarthritic change with oval lucency of the lateral femoral condyle measuring approximately 2 cm suspicious for prominent osteochondral defect. MRI may confirm Dictated by: Tong Posadas MD 08/10/2019 14:08 Electronically signed by Tong Posadas MD in [facility] 08/10/2019 14:08
== END ==
PROVIDERS: PCP Internal Medicine; Visit Provider Internal Medicine
DX: M25.561 Pain in right knee (principal)
CPT/HCPCS: 73562

== ENCOUNTER 2020-05-30 02:06 | Emergency (ER) | payer MEDICARE, OTHER, SELFPAY ==
[2020-05-30 02:08] VITALS: BP 124/72; PULSE 62; RESP 16; TEMP 36.7; O2SAT 96; BMI 26.9
[2020-05-30 02:17] VITALS: BMI 30.5
--- NOTE | 2020-05-30 02:20 | CT_ITS ---
PROCEDURE: CT CHEST WO CON CLINICAL INDICATION: felt pop in left rib area Left-sided chest pain COMPARISON: CT CT ANGIO CHEST from 05/05/2019 TECHNIQUE: Axial images obtained with sagittal and coronal reformats. All CT scans at the facility use one or more dose reduction, viz: automated exposure control, ma/kV adjustment per patient size (including targeted exams where dose is matched to indication, i.e. head), or iterative reconstruction technique. FINDINGS: HEART AND MEDIASTINAL STRUCTURES: There are numerous small opacities within the anterior mediastinum consistent with small lymph nodes which are not significantly changed. There are coronary artery calcifications present. There is tortuosity of the descending thoracic aorta LUNGS AND PLEURAL SPACES: Atelectatic and/or fibrotic change present in the left lung base with some adjacent patchy density which could represent developing area of infiltrate. BONY STRUCTURES: There are old bilateral rib fractures involving the right 3rd rib anteriorly, right 11th rib posteriorly, left 10th rib posteriorly. There is an age indeterminate right 5th rib fracture anteriorly. No definite acute fracture apparent. There are degenerative changes of the thoracic spine with thoracic scoliosis convex right. Prior vertebroplasty at L1 with chronic wedge compression changes at L1.. UPPER ABDOMEN: There is a right renal cyst at 2 cm. ADDITIONAL FINDINGS: No other significant abnormalities. IMPRESSION: Atelectatic and/or fibrotic change in the left lung base with some adjacent patchy density which could represent developing pneumonia. Old bilateral rib fractures. No acute fracture apparent Dictated by: Tong Posadas MD 05/30/2020 06:04 Tong Posadas MD in [place] 05/30/2020 06:05
--- NOTE | 2020-05-30 03:13 | HMH.EDGENADL ---
ED Disposition Clinical Impression: Costal chondritis Disposition: Home, Self-Care Condition on Discharge: Good Instructions: DI for Acute Pain -- Adult Additional Instructions: call pcp this am Referrals: Miguel Mak [Primary Care Provider] - - Critical Care Critical Care Time: No Attestation: On 05/30/20, the high probability of a clinically significant, sudden or life threatening deterioration of the following system(s) required my full and direct attention, intervention and personal management. The time I documented below is in addition to time spent performing reported procedures but includes the following listed in this critical care notation. Medical Decision Making - Medical Records Medical records reviewed: Yes: I reviewed the patient's medical records. - [place] Inquiry Pt receiving controlled substance: No Vital Signs: 05/30/20 02:08 Temperature 98.1 F Temperature Source Oral Pulse Rate [Left Radial] 62 Respiratory Rate 16 Blood Pressure [Right Arm] 124/72 Blood Pressure Mean [Right Arm] 89 Blood Pressure Source [Right Arm] Automatic Cuff Blood Pressure Position [Right Arm] Sitting 02 Sat by Pulse Oximetry 96 Oxygen Delivery Method Room Air Orders (Tests/Meds): ED MEDICATIONS Discontinued Medications Generic Name Dose Route Start Last Admin Trade Name Freq PRN Reason Stop Dose Admin Acetaminophen 1,000 mg 05/30/20 02:18 05/30/20 02:20 Acetaminophen 500mg Tab PO 05/30/20 02:19 1,000 mg ONCE ONE Administration ORDERS Category Date Time Status CT chest wo con Stat Cat Scan 05/30/20 02:20 Taken - CT Data CT Scan: Chest Time Received: 03:[address] Reviewed: Yes: I have viewed the radiologist's interpretation Preliminary Findings: No Fracture Seen General Adult HPI - General Chief complaint: PAIN Stated complaint: ? broken rib wants xray Time Seen by Provider: 05/30/20 02:30 Mode of Arrival: Ambulatory Source of Information: Patient, Medical Record Limitations: No Limitations Description of Symptoms (Recalled from ER Triage Doc. by RN): pt stated she was picking up a heavy load of laundry around 9pm when she felt a pop in her left rib under her breast area and reports pt reports breaking a rib in a similar fashion before and would like an Xray. pt stated she didnt take any medication for pain at home but would like some tylenol now. - History of Present Illness HPI narrative: pt with lt ant rib pain after lifting tonight - hx of prev rib fx - hx of osteoporosis - Onset (ago): hour(s) Location: chest Severity: moderate Associated symptoms: denies other symptoms - Related Data Home Medications Medication Instructions Recorded Confirmed Alendronate Sodium [Alendronate 70 mg PO . 11/28/18 06/08/19 35mg Tablet] Amlodipine Besylate [Amlodipine 5 mg PO DAILY 11/28/18 06/08/19 5mg tab] Lisinopril/Hydrochlorothiazide 1 tab PO DAILY 11/28/18 06/08/19 [Lisinopril-Hctz 20-12.5 mg Tab] gabapentin 600 mg tablet 600 mg PO QHS #90 tab 02/24/19 06/08/19 levothyroxine 150 mcg tablet 150 mcg PO DAILY #90 tab 02/24/19 06/08/19 Previous Rx's Medication Instructions Recorded meloxicam 7.5 mg tablet 7.5 mg PO DAILY 30 Days #30 tab 04/06/19 Hydrocodone/Acetaminophen [[place] 1 each PO Q4-6H PRN #9 tab 05/05/19 5-325 Tablet] meloxicam 7.5 mg tablet 7.5 mg PO DAILY 30 Days #30 tab 06/08/19 Allergies Allergy/AdvReac Type Severity Reaction Status Date / Time No Known Allergies Allergy Verified 06/08/19 11:51 [facility] History - Hepatitis A Screen Drug use history?: No High risk sexual behaviors?: No History of sexually transmitted infection?: No Currently employed?: No Childcare worker?: No Do you have indoor plumbing?: Yes Do you have electricity?: Yes Attestation statement:: This patient has been screened for Hepatitis A risk factors. I have reviewed the patient's past medical history: Yes Medical History: Reports:: Hypertensio
[2020-05-30 03:39] VITALS: BP 118/69; PULSE 65; RESP 15; TEMP 37; O2SAT 98
== END 2020-05-30 03:41 | disposition home or self-care (01) ==
PROVIDERS: Emergency Provider Emergency Medicine; PCP Internal Medicine
DX: M94.0 Chondrocostal junction syndrome [Tietze] (principal); X50.0XXA Overexertion from strenuous movement or load, initial encounter; Y92.019 Unspecified place in single-family (private) house as the place of occurrence of the external cause; I10 Essential (primary) hypertension; E03.9 Hypothyroidism, unspecified; F17.290 Nicotine dependence, other tobacco product, uncomplicated; M81.0 Age-related osteoporosis without current pathological fracture; Z90.710 Acquired absence of both cervix and uterus; Z96.642 Presence of left artificial hip joint
CPT/HCPCS: 71250; 99282

== ENCOUNTER → 2020-12-26 11:09 | Outpatient (CLI) | payer MEDICARE, OTHER, SELFPAY ==
[2020-12-26 11:14] LABS: Adenovirus F 40/41, stool Not Detected (NotDetected); Astrovirus Not Detected (NotDetected); Campylobacter Not Detected (NotDetected); Clostridium Difficile A/B, PCR Not Detected (NotDetected); Cryptosporidium Not Detected (NotDetected); Cyclospora Cayetanesis Not Detected (NotDetected); Entamoeba histolytica Not Detected (NotDetected); Enteroaggregative E coli Not Detected (NotDetected); Enteropathogenic E coli Not Detected (NotDetected); Enterotoxigenic E coli Not Detected (NotDetected); Giardia lamblia Not Detected (NotDetected); Norovirus Not Detected (NotDetected); Plesimonas Shigalloides, PCR Not Detected (NotDetected); Rotavirus A Not Detected (NotDetected); Salmonella, PCR Not Detected (NotDetected); Sapovirus Not Detected (NotDetected); Shiga-like toxin E coli Not Detected (NotDetected); Shigella Enterovasive E coli Not Detected (NotDetected); Vibrio Cholerae Not Detected (NotDetected); Vibrio, PCR Not Detected (NotDetected); Yersinia Entercolitica, PCR Not Detected (NotDetected)
== END ==
PROVIDERS: Visit Provider Internal Medicine
DX: R19.7 Diarrhea, unspecified
CPT/HCPCS: 87177; 87205; 87506

== ENCOUNTER → 2021-03-04 09:25 | Outpatient (CLI) | payer MEDICARE, OTHER, SELFPAY | PROVIDERS: Visit Provider Internal Medicine Gastroenterology | DX: Z01.812 Encounter for preprocedural laboratory examination (principal); Z20.822 Contact with and (suspected) exposure to COVID-19; Z12.11 Encounter for screening for malignant neoplasm of colon; R19.7 Diarrhea, unspecified | CPT/HCPCS: U0003 ==

== ENCOUNTER 2021-03-06 13:00 | Day surgery (SDC) | payer MEDICARE, OTHER, SELFPAY ==
[2021-03-02 14:43] VITALS: BMI 25.7
[2021-03-06 13:15] VITALS: BP 134/85; PULSE 76; RESP 18; TEMP 37.1; O2SAT 97
[2021-03-06 13:38] VITALS: O2SAT 98
--- NOTE | 2021-03-06 13:41 | HMH.ANESCL ---
[facility] Anesthesia Checklist - Patient Identification Patient Identification: Arm Band - Structural Data Admitted From: Home Planned Operative Procedure/s: colonoscopy Consent for Planned Operative Procedure(s) Verified: Yes Verified Documents: Surgical Consent, History and Physical - NPO Status Verified Time NPO: 00:00 - Additional verifications Anesthesia Reactions: No Hx Blood Transfusions: No Blood Transfusion Reaction: No - Airway Assessment C-Spine Mobility Assessed: Yes (mp2) TMJ Mobility Assessed: Yes Dentition: Edentulous - Neurological Assessment Level of Consciousness: Awake, Alert - Anesthesia Plan Anesthesia Risk discussed: Yes Anesthesia Plan: Verified ASA Class: II Anesthesia Type: MAC [facility] History I have reviewed the patient's past medical history: Yes Medical History: Reports:: Hypertension, Osteoporosis, Urinary Tract Infection Denies:: Cancer, Diabetes Mellitus Type 1, Diabetes Mellitus Type 2, Internal Pacemaker, MRSA, Seizures *Have you ever received a pneumonia vaccine?: Yes *Have you received a flu vaccine this season?: Yes Other Medical History: Reports: Arthritis (osteo), Osteoporosis, Thyroid Disease. Denies: Blood Transfusion Reaction Anesthesia experience/problems:: nac Laterality Cases: Left: Total Hip Replacement Other Surgeries: Yes: Hysterectomy-Total, Other. No: Pacemaker Amputation: No Fractures: No - *Social History Last grade of school completed: High school graduate Smoking Status: Current some day smoker Tobacco Type: e-cigarettes # Packs/Day (cigarettes): 1 Alcohol Intake: never Substance Use Type: denies use *Occupational Status:: employed Housing: house Household Members: spouse *Travel in the last 8 weeks: None Family Hx:: Cancer
--- NOTE | 2021-03-06 14:02 | HMH.PROC ---
[facility] Procedure Note Procedure Note:: Colonoscopy Procedure Report: Colonoscopy with cold biopsies and cold snare polypectomy Endoscopist: Soto Huerta II, MD Referring physician: Miguel Mak MD Date of Procedure: March 06, 2021 Equipment: Olympus 190 variable stiffness pediatric colonoscope Sedation: MAC sedation Indication: Mrs. Snow is a 65-year-old female who is here for diagnostic colonoscopy. She has had an abrupt change in her bowel habits. After her COVID-19 vaccination in August 2020, she began to have diarrhea and loss of appetite. She reports primarily loose and watery bowel movements and up to 3 or 4 bowel movements a day. Her gastrointestinal PCR stool panel was negative for pathogens and she had normal fecal leukocytes. Her CAT scan showed multiple fluid-filled loops of small bowel and possible enteritis. She also had some gallstones with mildly distended gallbladder. She reports no right upper abdominal pain. She has no abdominal pain presently. She reports no hematochezia or bright red rectal bleeding. She does report some weight loss. She also reports some intermittent fecal incontinence that was occurring up to twice weekly. This has improved some. Her last colonoscopy was 11 years ago. She had 7 polyps removed at that time. She reports no family history of colitis, Crohn's disease or colon cancer. Procedure: Prior to the procedure, a history and physical exam was performed, and patient's medications and allergies were reviewed. The risks, benefits and alternatives of the sedation and procedure were discussed with the patient. All questions were answered and informed consent was obtained. The patient was brought to the procedure room. Patient identification and proposed procedure were verified by the physician and the nurse. The patient was placed in a left lateral decubitus position and the scope was passed under direct vision. Throughout the procedure, the patient's blood pressure, pulse, and oxygen saturations were monitored continuously. The colonoscopy was accomplished without difficulty. The patient tolerated the procedure well. Findings: On digital rectal examination there was normal rectal tone. There were no external hemorrhoids. The colonoscope was introduced through the anal canal to the rectum and advanced to the cecum. The ileocecal valve and appendiceal orifice were identified. The scope was advanced a short distance into the ileum which appeared grossly normal. The scope was then withdrawn into the colon. The cecum, ascending and transverse colon and mucosa were grossly normal. Cold biopsies were taken from the right colon to rule out microscopic/lymphocytic colitis. There were scattered diverticuli throughout the colon but more predominantly in the descending and sigmoid colon (LEFT colon). There was a single sigmoid colon polyp (5 mm) and 2 rectal polyps (5 and 6 mm)) which were all 3 removed via cold snare polypectomy. Upon retroflexion within the rectum there were grade 1-2 internal hemorrhoids. The preparation was excellent throughout with Kamuela Preparation Score of 9. The cecal time was 12 minutes. Impression: 1. Colonic polyps x3 (rule out hyperplastic polyps) 2. Pandiverticulosis 3. Grade 1-2 internal hemorrhoids Plan: I will follow-up the biopsies to rule out microscopic colitis. If the biopsies do confirm lymphocytic colitis, I would recommend budesonide. If the biopsies are normal, I would consider treatment with fiber bulk and certainly consider Viberzi therapy. I will follow up the polyp histology. If the polyps are non-adenomatous, she will not require surveillance colonoscopy again for 10 years by ACS guidelines.
[2021-03-06 14:06] VITALS: BP 98/52; PULSE 64; RESP 18; TEMP 36.6; O2SAT 94
[2021-03-06 14:16] VITALS: BP 99/72; PULSE 65; RESP 18; O2SAT 96
[2021-03-06 14:26] VITALS: BP 129/79; PULSE 62; RESP 18; O2SAT 96
[2021-03-06 14:32] VITALS: BP 117/74; PULSE 66; RESP 18; O2SAT 96
== END 2021-03-06 14:36 | disposition home or self-care (01) ==
LOC: OUTP 13:03
PROVIDERS: PCP Internal Medicine; Visit Provider Internal Medicine Gastroenterology
PROC: 0DJD8ZZ Inspection of Lower Intestinal Tract, Via Natural or Artificial Opening Endoscopic (ICD-10-PCS; CPT 45378; principal; 2021-03-06 14:30)
DX: K63.5 Polyp of colon (principal); K57.32 Diverticulitis of large intestine without perforation or abscess without bleeding; K64.0 First degree hemorrhoids; K62.1 Rectal polyp; I10 Essential (primary) hypertension; M81.0 Age-related osteoporosis without current pathological fracture; M19.90 Unspecified osteoarthritis, unspecified site; E07.9 Disorder of thyroid, unspecified; Z72.0 Tobacco use; Z80.9 Family history of malignant neoplasm, unspecified; Z79.899 Other long term (current) drug therapy
CPT/HCPCS: 45385; 88305

== ENCOUNTER → 2021-06-05 12:16 | Outpatient (CLI) | payer MEDICARE, OTHER, SELFPAY ==
--- NOTE | 2021-06-05 12:20 | XR_ITS ---
PROCEDURE: XR HIP RT 2-3V W/PELVIS CLINICAL INDICATION: RT HIP PAIN COMPARISON: CR [id number] HIP LT 2-3V W/PELVIS IF PERFOR from 06/29/[address] abdomen pelvis wo con from 12/06/2018 FINDINGS: There has been prior pinning of the right femoral neck fracture with good alignment. In the right femoral head laterally there is a well-circumscribed defect which involves cortex. This bony defect measures 1.5 by 1.3 cm. This was not present on the previous exam. There are bony hypertrophic changes along the inferior aspect of the acetabulum with prominent subchondral lucency of the acetabulum and the femoral neck at this region. Osteosclerosis is noted along the upper aspect of the femoral head. There is generalized vascular calcification. Osteoarthritic changes are present in the right hip. Left hip hemiarthroplasty noted. There is prominent subchondral lucency along the acetabular roof on the left. IMPRESSION: Prominent defect of the right femoral head laterally which is well-circumscribed. This has developed since the previous exam. Neoplasm such as metastatic disease or infection is considered. This does not have a typical appearance for a geode. Prominent lucency also noted along the inferior aspect of the femoral neck and the inferior aspect of the acetabulum. Initial workup with CT without and with contrast with metallic subtraction suggested. 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
--- NOTE | 2021-06-05 12:20 | XR_ITS ---
PROCEDURE: XR LUMBAR SPINE MIN 4V CLINICAL INDICATION: LOW BACK PAIN COMPARISON: CT ABDPELWO CT abdomen pelvis wo con from 11/08/2018 CR XR LUMBAR SPINE MIN 4V from 02/17/[address] CHEST WO CON from 05/30/2020 FINDINGS: Moderate lumbar scoliosis convex left which is increased compared to the previous exam. Scoliosis measures approximately 15 degrees previously measuring 9 degrees. There has been prior kyphoplasty at L1. Wedge compression changes noted at L1 with loss of height anteriorly of greater than 50 percent. No acute fracture or dislocation. Facet arthritic changes are noted at L5-S1. There is some extruded methylmethacrylate along posterior aspect of the L1 vertebral body. Degenerative disc disease is present at T12-S1. The degenerative disc disease appears slightly progressed. Other findings:Cholelithiasis IMPRESSION: Multilevel lumbar spondylosis with scoliosis, chronic wedge compression changes of L1 with prior kyphoplasty at L1 and mild multilevel degenerative disc disease which appears slightly worse. Dictated by: Tong Posadas MD 06/05/2021 13:42 Tong Posadas MD in [place] 06/05/2021 13:42
== END ==
PROVIDERS: PCP Internal Medicine; Visit Provider Internal Medicine
DX: M54.50 Low back pain, unspecified (principal); M25.551 Pain in right hip
CPT/HCPCS: 72110; 73502

== ENCOUNTER → 2021-06-19 11:08 | Outpatient (CLI) | payer MEDICARE, OTHER, SELFPAY ==
[2021-06-19 13:00] LABS: Blood Urea Nitrogen 16 mg/dl (7-17); Estimated Glomerular Filt Rate 72 ml/min (>60); GFR (African American) 87 ML/MIN (>60)
== END ==
PROVIDERS: Visit Provider Internal Medicine
DX: Z01.812 Encounter for preprocedural laboratory examination (principal); M25.551 Pain in right hip
CPT/HCPCS: 36415; 82565; 84520

== ENCOUNTER → 2021-06-23 13:12 | Outpatient (CLI) | payer MEDICARE, OTHER, SELFPAY ==
--- NOTE | 2021-06-23 13:16 | CT_ITS ---
PROCEDURE INFORMATION: Exam: CT Right Lower Extremity Without and With Contrast, Hip Exam date and time: 06/23/2021 1:16 PM Age: 65 years old Clinical indication: Pain; Hip; Right; Additional info: RT hip pain TECHNIQUE: Imaging protocol: CT of the Right lower extremity without and with intravenous contrast was performed. Exam focused on the hip. 3D rendering (Not supervised by radiologist): MIP and/or 3D reconstructed images were created by the technologist. Radiation optimization: All CT scans at this facility use at least one of these dose optimization techniques: automated exposure control; mA and/or kV adjustment per patient size (includes targeted exams where dose is matched to clinical indication); or iterative reconstruction. Contrast material: ISOVUE; Contrast volume: 70 ml; Contrast route: IV; COMPARISON: 1. EXTLRWO CT EXT.LOWER-RT-W/O CONTRAST 09/02/2016 7:20 PM 2. CR XR HIP RT 2-3V W/PELVIS 06/05/2021 12:23 PM 3. CR [id number] HIP RT 2-3V W/PELVIS IF PERFOR 11/17/2016 2:51 PM FINDINGS: Bones/joints: There is severe secondary osteoarthritis of the right hip joint. The well-defined marginal lucency involving the femoral head commented on prior radiographs corresponds to a benign appearing subchondral cyst that likely arose due to impingement and mechanical erosion from contact with the lateral acetabulum. There is no evidence of metastatic disease. A healed fracture of the right femoral neck has healed with an impacted alignment. Traversing cannulated screws appear intact within the limits of streak metal artifact. Sclerosis of the severely flattened right femoral head could be due to osteoarthritis or osteonecrosis. There is no acute fracture or dislocation. No aggressive bone lesions are present. Soft tissues: Focal severe muscle atrophy involves the anterior distal gluteus minimus and medius muscles on the right. Vasculature: The vasculature demonstrates moderate atherosclerotic calcification. Multiple phleboliths are present in the pelvis. Reproductive: The vaginal soft tissues appear unusually prominent although having a nonspecific appearance. Consider gynecologic assessment.The uterus is nonvisualized and presumed to be surgically absent. IMPRESSION: 1. Severe secondary osteoarthritis of the right hip with healed fracture of the femoral neck. 2. Well-defined marginal erosion involving the femoral head commented on prior radiographs appears benign and is likely due to mechanical erosion from abnormal contact of the femoral head with the lateral acetabulum. 3. Significant gluteus minimus and medius atrophy on the right suggestive of remote tendon injury. 4. Nonspecific prominence of the vaginal soft tissues. Consider gynecologic assessment.
== END ==
PROVIDERS: PCP Internal Medicine; Visit Provider Internal Medicine
DX: M25.551 Pain in right hip (principal)
CPT/HCPCS: 73702; Q9967

== ENCOUNTER → 2021-09-29 16:42 | Outpatient (CLI) | payer MEDICARE, OTHER, SELFPAY ==
[2021-09-29 17:25] LABS: Basophils # 0.1 K/mm3 (0-0.2); Basophils % 1.3 % (0.1-2.0); Eosinophils # 0.1 K/mm3 (0.0-0.4); Eosinophils % 2.2 % (0.1-12.0); Hematocrit 44.8 % (37.0-47.0); Hemoglobin 14.1 g/dL (12.2-16.2); Lymphocytes # 1.9 K/mm3 (0.7-4.5); Lymphocytes % 28.4 % (10-50); Mean Corpuscular HGB Conc 31.4 g/dL (31.8-35.4); Mean Corpuscular Hemoglobin 30.7 pg (27.0-31.2); Mean Platelet Volume 8.3 fl (7.4-10.4); Monocytes # 0.4 K/mm3 (0.1-1.0); Monocytes % 6.7 % (1.7-9.3); Neutrophils # 4.1 K/mm3 (1.8-7.8); Neutrophils % 61.5 % (37.0-80.0); Platelet Count 281 K/mm3 (142-424); Red Blood Count 4.57 M/mm3 (4.20-5.40); Red Cell Distribution Width 13.5 % (11.5-17.5); White Blood Count 6.6 K/mm3 (4.8-10.8)
[2021-09-29 18:08] LABS: Chloride 106 mmol/L (98-107); Potassium 4.1 mmoL/L (3.5-5.1); Sodium 138 mmol/L (136-145)
[2021-09-29 18:10] LABS: Alanine Aminotransferase 10 U/L (12-78); Aspartate Amino Transferase 21 U/L (14-36); Blood Urea Nitrogen 14 mg/dl (7-17); Estimated Glomerular Filt Rate 100 ml/min (>60); GFR (African American) 121 ML/MIN (>60)
[2021-09-29 18:11] LABS: Albumin Level 3.7 g/dl (3.5-5.0); Albumin/Globulin Ratio 1.6 (1.1-1.8); Alkaline Phosphatase 80 U/L (38-126); Anion Gap 6.1 mEq/L (5-15); Bilirubin,Total 0.5 mg/dl (0.2-1.3); Calcium 8.2 mg/dl (8.4-10.2); Carbon Dioxide 30 mmol/L (22.0-30.0); Cholesterol 114 mg/dl (140-200); Globulin 2.3 g/dL (1.3-3.2); Glucose 80 mg/dl (74-100); Triglycerides 82 mg/dl (30-150); VLDL Cholesterol 16 mg/dL (0-40)
[2021-09-29 18:12] LABS: Chol/HDL Ratio 2.5 (1-3.5); HDL Cholesterol 45 mg/dl (40-60)
== END ==
PROVIDERS: Visit Provider Internal Medicine
DX: E03.9 Hypothyroidism, unspecified (principal); I10 Essential (primary) hypertension; E78.5 Hyperlipidemia, unspecified; G60.9 Hereditary and idiopathic neuropathy, unspecified; M15.0 Primary generalized (osteo)arthritis; M81.0 Age-related osteoporosis without current pathological fracture
CPT/HCPCS: 80053; 80061; 85025

== ENCOUNTER → 2021-10-02 12:51 | Outpatient (CLI) | payer MEDICARE, OTHER, SELFPAY ==
[2021-10-02 16:37] LABS: Thyroid Stimulating Hormone 0.84 uIU/mL (0.465-4.68)
== END ==
LOC: LAB.DROPOF 12:52 → LAB 13:08
PROVIDERS: Visit Provider Internal Medicine
DX: E03.9 Hypothyroidism, unspecified (principal); I10 Essential (primary) hypertension; E78.5 Hyperlipidemia, unspecified; G60.9 Hereditary and idiopathic neuropathy, unspecified; M15.0 Primary generalized (osteo)arthritis; M81.0 Age-related osteoporosis without current pathological fracture
CPT/HCPCS: 84443

== ENCOUNTER 2022-08-03 10:49 | Emergency (ER) | payer MEDICARE, OTHER, SELFPAY ==
[2022-08-03 11:00] VITALS: RESP 20; TEMP 36.6; O2SAT 95; BMI 28.4
--- NOTE | 2022-08-03 11:04 | XR_ITS ---
FINAL REPORT CLINICAL HISTORY: fall COMPARISON: 02/24/2019 FINDINGS: Left foot Three views were obtained. There has been interval significant progression of significant neuropathic disease. There are age-indeterminate fractures of the 2nd through 4th metatarsal necks. The bones are osteopenic. IMPRESSION: Severe progression of neuropathic disease. Metatarsal fractures. Reviewed, Interpreted and Dictated by Patrick Jackson MD Transcribed by Carla Murry Authenticated and [facility]
--- NOTE | 2022-08-03 11:27 | EXP.UTC ---
Discharge Plan Disposition Patient Disposition: Home, Self-Care Condition: Good Prescriptions Prescriptions: No Action levothyroxine 150 mcg tablet 150 mcg PO DAILY Qty: 90 gabapentin 600 mg tablet 600 mg PO QHS Qty: 90 amlodipine 5 MG tablet 10 mg PO DAILY alendronate 35 MG tablet 70 mg PO WEEKLY atorvastatin 20 mg tablet 20 mg PO HS Label Comments: TAKE 1 TABLET BY MOUTH EVERY DAY meloxicam 7.5 MG tablet 7.5 mg PO BID Referrals Follow up/Referrals: Miguel Mak MD [Primary Care Provider] - See instructions Activity Restrictions/Add. Instructions Additional Instructions/Restrictions: Wear walking boot until you see Dr Mak Clinical Impressions Clinical Impression: Metatarsal fracture Instructions Patient Instructions: DI for Metatarsalgia Discharge ED Provider: Madeleine Rome [facility] General Stated complaint: LT foot pain Fall@home 07/25 Mode of Arrival: Ambulatory Source of Information: Patient Limitations: No Limitations Time Seen by Provider: 08/03/22 11:52 Description of Symptoms (Recalled from Triage Doc. by RN): fell and hurt left foot HEENT Symptoms (Recalled from RN notes): No Resp Symptoms (Recalled from RN notes): No Skin Symptoms (Recalled from RN notes): No MS Symptoms (Recalled from RN notes): Yes Functional Status (Recalled from RN notes): n/a History of Present Illness Provider Complaint: Patient fell and turned left foot 2 nights ago. Left foot twisted and turned underneath her. She has been able to bear weight but is mostly walking on her heel. No numbness or tingling. Onset (ago): day(s) (2) Location: left and lower extremity Radiation: non-radiation Quality: aching Consistency: constant Relieving factors: immobilization Exacerbating factors: movement Associated symptoms: denies other symptoms Treatments prior to arrival: none Related Data Home Medications Medication Instructions Recorded Confirmed alendronate 35 mg tablet 70 mg PO WEEKLY Osteoarthritis 11/28/18 08/03/22 amlodipine 5 mg tablet 10 mg PO DAILY blood pressure 11/28/18 08/03/22 gabapentin 600 mg tablet 600 mg PO QHS Pain #90 tabs 02/24/19 08/03/22 levothyroxine 150 mcg tablet 150 mcg PO DAILY thyroid #90 tabs 02/24/19 08/03/22 meloxicam 7.5 mg tablet 7.5 mg PO BID pain 03/02/21 03/02/21 atorvastatin 20 mg tablet 20 mg PO HS High cholesterol 08/03/22 08/03/22 Allergies Allergy/AdvReac Type Severity Reaction Status Date / Time No Known Allergies Allergy Verified 08/03/22 11:16 Worker's Comp Is this a Worker's Comp case?: No [facility] Disclaimer: The information contained in this section may have been updated after the patient was seen, as this information can be updated by other users. 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 caffeine: Yes ROS Obtained: Yes All systems reviewed & no additional complaints except as documented Musculoskeletal Musculoskeletal: Reports as per HPI and Reports abnormal gait Neurologic Neurologic: Reports abnormal gait Physical Exam General General appearance: alert and in no apparent distress Head Head exam: atraumatic, normocephalic and normal inspection Eye Eye exam: Present normal appearance, PERRL and EOMI ENT ENT exam: Present normal exam, normal oropharynx, mucous membranes moist, TM's normal bilaterally and normal external ear exam Neck Neck exam: Present normal inspection, full ROM and trachea midline; Absent meningismus or lymphadenopathy Chest Chest inspection: Present normal inspection and symmetric chest wall rise; Absent tenderness Respiratory Respiratory exam: Present normal lung sounds bilaterally; Absent respiratory distress Cardiovasc
[2022-08-03 12:59] VITALS: BP 133/91; PULSE 79; RESP 20; TEMP 36.6; O2SAT 95
== END 2022-08-03 12:50 | disposition home or self-care (01) ==
PROVIDERS: Emergency Provider Physician Assistant; PCP Internal Medicine
DX: S92.345A Nondisplaced fracture of fourth metatarsal bone, left foot, initial encounter for closed fracture (principal); S92.325A Nondisplaced fracture of second metatarsal bone, left foot, initial encounter for closed fracture; S92.335A Nondisplaced fracture of third metatarsal bone, left foot, initial encounter for closed fracture; W19.XXXA Unspecified fall, initial encounter; M85.872 Other specified disorders of bone density and structure, left ankle and foot
CPT/HCPCS: 73630; 99212; 99214; G0463

== ENCOUNTER → 2022-08-10 16:53 | Outpatient (CLI) | payer MEDICARE, OTHER, SELFPAY ==
[2022-08-10 17:50] LABS: Basophils # 0.1 K/mm3 (0-0.2); Eosinophils # 0.3 K/mm3 (0.0-0.4); Eosinophils % 4.2 % (0.1-12.0); Hematocrit 44.7 % (37.0-47.0); Hemoglobin 14.1 g/dL (12.2-16.2); Mean Corpuscular HGB Conc 31.5 g/dL (31.8-35.4); Mean Corpuscular Volume 88.9 fl (81-99); Mean Platelet Volume 8.1 fl (7.4-10.4); Monocytes # 0.4 K/mm3 (0.1-1.0); Monocytes % 5.8 % (1.7-9.3); Platelet Count 310 K/mm3 (142-424); Red Blood Count 5.03 M/mm3 (4.20-5.40); Red Cell Distribution Width 14.7 % (11.5-17.5); White Blood Count 6.7 K/mm3 (4.8-10.8)
[2022-08-10 18:56] LABS: Alanine Aminotransferase 14 U/L (12-78); Albumin Level 4.1 g/dl (3.5-5.0); Albumin/Globulin Ratio 1.7 (1.1-1.8); Alkaline Phosphatase 103 U/L (38-126); Aspartate Amino Transferase 22 U/L (14-36); Bilirubin,Total 0.4 mg/dl (0.2-1.3); Blood Urea Nitrogen 15 mg/dl (7-17); Calcium 8.7 mg/dl (8.4-10.2); Carbon Dioxide 33 mmol/L (22.0-30.0); Chloride 104 mmol/L (98-107); Chol/HDL Ratio 2.2 (1-3.5); Cholesterol 113 mg/dl (140-200); Estimated Glomerular Filt Rate 55 ml/min (>60); GFR (African American) 67 ML/MIN (>60); Globulin 2.4 g/dL (1.3-3.2); Glucose 84 mg/dl (74-100); HDL Cholesterol 52 mg/dl (40-60); Sodium 140 mmol/L (136-145); Total Protein,Serum 6.5 g/dl (6.3-8.2); Triglycerides 154 mg/dl (30-150); VLDL Cholesterol 31 mg/dL (0-40)
[2022-08-10 19:08] LABS: Direct LDL Cholesterol 42.43 mg/dL (100-129)
[2022-08-10 19:10] LABS: Erythrocyte Sedimentation Rate 14 mm/hr (0-30)
[2022-08-10 19:27] LABS: Thyroid Stimulating Hormone 0.48 uIU/mL (0.465-4.68)
[2022-08-10 19:51] LABS: Vitamin B12 > 1000 pg/mL (239-931)
== END ==
PROVIDERS: PCP Internal Medicine; Visit Provider Internal Medicine
DX: M81.0 Age-related osteoporosis without current pathological fracture (principal); I10 Essential (primary) hypertension; G60.9 Hereditary and idiopathic neuropathy, unspecified; M16.11 Unilateral primary osteoarthritis, right hip; E03.9 Hypothyroidism, unspecified; E78.5 Hyperlipidemia, unspecified; E53.8 Deficiency of other specified B group vitamins
CPT/HCPCS: 80053; 80061; 82306; 82607; 84443; 85025; 85651

== ENCOUNTER → 2022-09-11 09:08 | Outpatient (CLI) | payer MEDICARE, OTHER, SELFPAY ==
--- NOTE | 2022-09-11 09:14 | XR_ITS ---
FINAL REPORT TECHNIQUE: Bone densitometry calculations of the lumbar spine and left forearm were obtained. CLINICAL HISTORY: . osteoporosis FINDINGS: DEXA BONE DENSITY AXIAL SKELETON Using L1-4, the bone mineral density of the spine is 1.122 g/cm2, corresponding to T-score of 0.7. Using the left forearm, the bone mineral density of the distal 1/3 is 0.662 g/cm2, corresponding to a T-score of -0.5. NOTE: T-score: Standard deviation compared with peak bone mass of young adult mean. IMPRESSION: Normal bone mineral density of the lumbar spine and left forearm. Reviewed, Interpreted and Dictated by Sundar Fry III, MD Transcribed by Mariana Rivera Authenticated and [facility]
== END ==
PROVIDERS: PCP Internal Medicine; Visit Provider Internal Medicine
DX: M81.0 Age-related osteoporosis without current pathological fracture (principal); S92.325A Nondisplaced fracture of second metatarsal bone, left foot, initial encounter for closed fracture
CPT/HCPCS: 77080

== ENCOUNTER → 2022-11-02 15:02 | Outpatient (CLI) | payer MEDICARE, OTHER, SELFPAY ==
--- NOTE | 2022-11-02 15:07 | XR_ITS ---
FINAL REPORT CLINICAL HISTORY: H/O COMPRESSION FX OF BACK,LOW BACK PAIN COMPARISON: 06/05/2021 FINDINGS: 5 views of the lumbar spine were obtained. Moderate chronic L1 compression fracture with changes from kyphoplasty. There are moderate and severe degenerative changes. There are multiple levels with osteophytes and vacuum disc phenomenon. Vascular calcifications are noted. There is levoscoliosis of the lumbar spine. IMPRESSION: Chronic L1 compression fracture with changes from kyphoplasty. Moderate severe degenerative changes with no acute bony abnormality. Reviewed, Interpreted and Dictated by Sundar Fry III, MD Transcribed by Reema Jennings Authenticated and [facility]
== END ==
PROVIDERS: PCP Internal Medicine; Visit Provider Internal Medicine
DX: M54.50 Low back pain, unspecified (principal); Z87.311 Personal history of (healed) other pathological fracture
CPT/HCPCS: 72110

== ENCOUNTER 2024-03-23 15:00 | Outpatient (CLI) | payer MEDICARE, OTHER, SELFPAY ==
[2024-03-23 16:10] LABS: Basophils # 0.1 K/mm3 (0-0.2); Basophils % 0.8 % (0.1-2.0); Eosinophils # 0.3 K/mm3 (0.0-0.4); Eosinophils % 3.7 % (0.1-12.0); Hematocrit 44.9 % (37.0-47.0); Hemoglobin 13.6 g/dL (12.2-16.2); Lymphocytes # 2.1 K/mm3 (0.7-4.5); Lymphocytes % 31.2 % (10-50); Mean Corpuscular HGB Conc 30.4 g/dL (31.8-35.4); Mean Corpuscular Hemoglobin 29.7 pg (27.0-31.2); Mean Corpuscular Volume 97.8 fl (81-99); Mean Platelet Volume 8.1 fl (7.4-10.4); Monocytes # 0.5 K/mm3 (0.1-1.0); Monocytes % 7.6 % (1.7-9.3); Neutrophils # 3.8 K/mm3 (1.8-7.8); Neutrophils % 56.8 % (37.0-80.0); Platelet Count 299 K/mm3 (142-424); Red Blood Count 4.59 M/mm3 (4.20-5.40); Red Cell Distribution Width 13.8 % (11.5-17.5); White Blood Count 6.8 K/mm3 (4.8-10.8)
[2024-03-23 17:15] LABS: Albumin Level 3.7 g/dl (3.5-5.0); Chloride 106 mmol/L (98-107); Potassium 4.1 mmoL/L (3.5-5.1); Sodium 138 mmol/L (136-145)
[2024-03-23 17:18] LABS: Alanine Aminotransferase 14 U/L (12-78); Albumin/Globulin Ratio 1.5 (1.1-1.8); Alkaline Phosphatase 62 U/L (38-126); Anion Gap 6.1 mEq/L (5-15); Aspartate Amino Transferase 24 U/L (14-36); Bilirubin,Total 0.7 mg/dl (0.2-1.3); Blood Urea Nitrogen 18 mg/dl (7-17); Carbon Dioxide 30 mmol/L (22.0-30.0); Cholesterol 109 mg/dl (140-200); Estimated Glomerular Filt Rate 55 ml/min (>60); GFR (African American) 66 ML/MIN (>60); Globulin 2.4 g/dL (1.3-3.2); Glucose 85 mg/dl (74-100); Total Protein,Serum 6.1 g/dl (6.3-8.2); Triglycerides 91 mg/dl (30-150); VLDL Cholesterol 18 mg/dL (0-40)
[2024-03-23 17:19] LABS: Chol/HDL Ratio 2.1 (1-3.5); HDL Cholesterol 52 mg/dl (40-60)
[2024-03-23 17:30] LABS: Direct LDL Cholesterol 35.33 mg/dL (100-129)
[2024-03-23 17:49] LABS: Thyroid Stimulating Hormone 0.05 uIU/mL (0.465-4.68)
[2024-04-04 20:09] LABS: 1,25 Dihydroxy Vitamin D 52 pg/mL (.); 1,25-Dihydroxy, Vitamin D-2 <10 pg/mL (.); 1,25-Dihydroxy, Vitamin D-3 52 pg/mL (.)
== END 2024-03-23 23:59 | disposition home or self-care (01) ==
LOC: LAB.DROPOF 03-24 09:37
PROVIDERS: PCP Internal Medicine; Visit Provider Internal Medicine
DX: I10 Essential (primary) hypertension (principal); M81.0 Age-related osteoporosis without current pathological fracture; E78.5 Hyperlipidemia, unspecified; E03.9 Hypothyroidism, unspecified; Z68.26 Body mass index [BMI] 26.0-26.9, adult; F17.200 Nicotine dependence, unspecified, uncomplicated
CPT/HCPCS: 80053; 80061; 82652; 84443; 85025

== ENCOUNTER 2024-08-17 13:55 | Outpatient (CLI) | payer MEDICARE, OTHER, SELFPAY ==
[2024-08-17 18:49] LABS: Thyroid Stimulating Hormone 3.02 uIU/mL (0.465-4.68)
== END 2024-08-17 23:59 | disposition home or self-care (01) ==
LOC: LAB.DROPOF 08-18 10:38
PROVIDERS: PCP Internal Medicine; Visit Provider Internal Medicine
DX: E03.9 Hypothyroidism, unspecified (principal)
CPT/HCPCS: 84443

== ENCOUNTER 2025-01-27 13:25 | Outpatient (CLI) | payer MEDICARE, OTHER, SELFPAY ==
--- OUTSIDE RECORDS SUMMARY | 2025-01-27 13:28 | XMS_ITS | Clinical Summary ---
Author Organization [employer] ([place], [place], [place], [place]) Address [address] [place] [address] Care Team Providers Care Analyst Sales Name Role Phone Unavailable Primary Care Provider Unavailabl e Social History Tobacco Use Types Packs/Day Years Used Date Smoking Tobacco: Never Assessed Comments Unknown Sex and Gender Information Value Date Recorded Sex Assigned at Female 01/02/2022 7:42 PM CDT Legal Sex Female 7:42 PM CDT Gender Identity Female 01/02/2022 7:42 PM CDT Sexual Orientation Not on file Plan of Treatment Not on file
--- OUTSIDE RECORDS SUMMARY | 2025-01-27 13:28 | XMS_ITS | Referral Summary ---
Author Organization [employer] ([place], [place], [place], [place]) Address [address] [place] [address] Care Team Providers Care Store Operations Manager Name Role Phone Unavailable Primary Care Provider [...]
--- OUTSIDE RECORDS SUMMARY | 2025-01-27 13:28 | XMS_ITS | Clinical Summary ---
Author Organization [facility] Address [address] [place] [address] Care Team Providers Care Washing And Screening Plant Supervisor Name Role Phone Unavailable Primary Care Provider Unavailabl e Social History Tobacco Use Types Packs/Day Years Used Date Smoking Tobacco: Every Day Alcohol Use Standard Drinks/Week Comments Yes 0 (1 standard drink = 0.6 oz pur e alcohol) Comments Unknown Sex and Gender Information Value Date Recorded Sex Assigned at Not on file Legal Sex Female 8:54 PM EDT Gender Identity Not on file Sexual Orientation Not on file Last Filed Vital Signs Vital Sign Reading Time Taken Comments Blood Pressure - - Pulse - - Temperature - - Respiratory Rate - - Oxygen Saturation - - Inhaled Oxygen Concentration - - Weight 96.2 kg (212 lb 3 oz) 12/16/2013 10:44 AM EDT Height 167.6 cm (5' 6 ) 12/16/2013 10:44 AM EDT Body Mass Index 34.25 12/16/2013 10:44 AM EDT Plan of Treatment Not on file
--- OUTSIDE RECORDS SUMMARY | 2025-01-27 13:28 | XMS_ITS | Clinical Summary ---
Author Organization [facility] Address [address] [place] [address] Care Team Providers Care Backing In Machine Tender Name Role Phone Miguel Mak MD Primary Care Provider [phone] Allergies No known active allergies Medications docusate sodium (COLACE) 100 MG capsule Take 100 mg by mouth Every Night. Active Cyanocobalamin (Vitamin B-12) [address] 1 tablet on the tongue Daily. Active amLODIPine (NORVASC) 10 MG tablet Take 10 mg by mouth Daily. Active gabapentin (NEURONTIN) 600 MG tablet Take 600 mg by mouth Every Night. Active levothyroxine (SYNTHROID, LEVOTHROID) 150 MCG tablet Take 150 mcg by mouth Daily. Active alendronate (FOSAMAX) 70 MG tablet Take 70 mg by mouth Every 7 (Seven) Days. SATURDAY Active atorvastatin (LIPITOR) 20 MG tablet Take 20 mg by mouth Daily. Active oxyCODONE (Roxicodone) 5 MG immediate release tabletIndication s:Status post total hip replacement, left Take 1 tablet by mouth Every 4 (Four) Hours As Needed for Moderate Pain. 40 tablet Active Active Problems Problem Noted Date Diagnosed Date Status post total hip replacement, left ( 5) 03/22/2022 Acute postoperative pain 03/22/2022 Pain due to total hip replacement 03/21/2022 S/P total right hip arthroplasty, 11/15/202111/05 Acute blood loss anemia, asymptomatic 11/16/2021 Arthritis of right hip 11/15/2021 Hypertension 11/15/2021 Hyperlipidemia 11/15/2021 Hypothyroid 11/15/2021 Social History Tobacco Use Types Packs/Day Years Used Date Smoking Tobacco: Former Cigarettes 0.5 20 1 07/2000 - 05/2021 Smokeless Tobacco: Never Alcohol Use Standard Drinks/Week Comments Never 0 (1 standard drink = 0.6 oz pur e alcohol) AUDIT-C Answer Date Recorded Q1: How often do you have a drink containing alcohol? Never 11/15/2021 Q2: How many drinks containi ng alcohol do you have on a typical day when you are drinking? Patient does not drink Q3: How often do you have si x or more drinks on one occasion? Never 11/15/2021 Abuse Screen Answer Date Recorded Unsafe at Home or Work/School Not on file Feels Threatened by Someone? Not on file 03/2023 Does Anyone Keep You from Co ntacting Others or Doint Things Outside the Home? Not on file 04/15/2023 Physical Sign of Abuse Present Not on file 1 Housing Stability Answer Date Recorded Current Living Arrangements Not on file 03/2023 Potentially Unsafe Housing Conditions Not on adonay e 04/15/2023 Family and Community Support Answer Tien e Recorded Help with Day-to-Day Activities Not on file 04/15/2023 Lonely or Isolated Not on file 04/15/2023 Employment Answer Date Recorded Do you want help finding or keeping work or a gabriella b? Not on file 04/15/2023 Disabilities Answer Date Recorded Concentrating, Remembering, or Making Decisions Difficulty Not on file 04/15/2023 Doing Errands Independently Difficulty Not on fi le 04/15/2023 Education Answer Date Recorded Help with school or training? Not on file Preferred Language Not on file 04/15/2023 Comments No Sex and Gender Information Value Date Recorded Sex Assigned at Not on file Legal Sex Female 1:10 PM EDT Gender Identity Not on file Sexual Orientation Not on file Last Filed Vital Signs Vital Sign Reading Time Taken Comments Blood Pressure 125/92 03/22/2022 7:01 AM EDT Pulse 81 03/22/2022 7:01 AM EDT Temperature 36.9 C (98.5 F) 03/22/2022 7:01 AM EDT Respiratory Rate 16 03/22/2022 7:01 AM EDT Oxygen Saturation 90% 03/22/2022 7:01 AM EDT Inhaled Oxygen Concentration - - Weight 76 kg (167 lb 7 oz) 03/21/2022 11:48 AM E DT Height 167.6 cm (5' 6 ) 03/21/2022 11:48 AM EDT Body Mass Index 27.03 03/21/2022 11:48 AM EDT Plan of Treatment Health Maintenance Due Date Last Done Comments DXA SCAN 1953 LIPID PANEL 1953 TDAP/TD VACCINES (1 - Tdap) 1972 MAMMOGRAM 1993 COLOGUARD 1998 COLON CANCER SCREENING 5 YEAR SIGMOIDOSCOPY 1998 COLONOSCOPY 1998 COLORECTAL CANCER SCREENING 1998 CT COLONOGRAPHY 1998 FECAL OCCULT BLOOD TEST 1998 FIT Testing (1 year) 1998 Pneumococcal Vaccine 50+ (1 of 1 - PCV) 10/25/2003 ZOSTER VACCINE (1 of 2) 10/25/2003 ANNUAL PHYSICAL 10/26/2021 HEPATITIS C SCREENING 10/26/2021 COVID-19 Vaccine (1 - 2023- season) 2024 INFLUENZA VACCINE 04/07/2025 Medical Devices Implanted Type Area Cell Pourer Device Identifier Shelf Expiration Date Model / Serial / Lot Gary Acet R3 3h Std 52mm - [id number] Implanted:Qty: 1 on 11/15/2021 by Blanco Jacinto MD at [facility] Implant Right: Hip [employer] 08/14/2031 [id number] / / [id number] Scrw Sph Hd Reflection 6.5x20mm - [id number] Implanted:Qty: 1 on 11/15/2021 by Blanco Jacinto MD at [facility] Implant Right: Hip [employer] 07/07/2031 [id number] / / [id number] Scrw Sph Hd Reflection 6.5x25mm - [id number] Implanted:Qty: 1 on 11/15/2021 by Blanco Jacinto MD at [facility] Implant Right: Hip [employer] 05/02/2031 [id number] / / [id number] Scrw Sph Hd Reflection 6.5x30mm - [id number] Implanted:Qty: 1 on 11/15/2021 by Blanco Jacinto MD at [facility] Implant Right: Hip [employer] 02/19/2031 [id number] / / [id number] Liner Acet R3 Xlpe 0d 73z13br - [id number] Implanted:Qty: 1 on 11/15/2021 by Blanco Jacinto MD at [facility] Implant Right: Hip [employer] 09/24/2031 [id number] / / [id number] Stem Fem/Hip Polarstem W/Colr Std Sz5 - [id number] Implanted:Qty: 1 on 11/15/2021 by Blanco Jacinto MD at [facility] Implant Right: Hip [employer] 11/15/2027 [id number] / / [id number] Hd Fem/Hip Oxinium Tpr 06/20 36mm Pls0 - [id number] Implanted:Qty: 1 on 11/15/2021 by Blanco Jacinto MD at [facility] Implant Right: Hip [employer] 07/31/2031 [id number] / / [id number] Totl Hip Kermit Rodriguez Nephew - [id number] Implanted:Qty: 1 on 11/15/2021 by Blanco Jacinto MD at [facility] Implant Right: Hip [employer] CAPHIPTOTAL SN2 / / Scrw Sph Hd Reflection 6.5x30mm - [id number] Implanted:Qty: 1 on 03/21/2022 by Blanco Jacinto MD at [facility] Implant Left: Hip [employer] 2031 [id number] / / [id number] Scrw Sph Hd Reflection 6.5x20mm - [id number] Implanted:Qty: 1 on 03/21/2022 by Blanco Jacinto MD at [facility] Implant Left: Hip [employer] 01/04/2032 [id number] / / [id number] Liner Hip Or3o 2/Mobl Sz44/56 - [id number] Implanted:Qty: 1 on 03/21/2022 by Blanco Jacinto MD at [facility] Implant Left: Hip [employer] 03/07/2031 [id number] / / [id number] Insrt Hip Or30 2/Mobl Xlpe Sz28/44 - [id number] Implanted:Qty: 1 on 03/21/2022 by Blanco Jacinto MD at [facility] Implant Left: Hip [employer] [id number] 01/02/2031 [id number] / / [id number] Hd Fem/Hip [employer] Tpr Ceram 28mm - [id number] Implanted:Qty: 1 on 03/21/2022 by Blanco Jacinto MD at [facility] Implant Left: Hip BEN ALMA ROSA 09/23/2026 [id number] / / [id number] Slv Adapt Univ Tpr V40 Ti Pls0mm - [id number] Implanted:Qty: 1 on 03/21/2022 by Blanco Jacinto MD at [facility] Implant Left: Hip B[employer] AL[employer]A 01/31/2027 [id number] / / [id number] Scrw Sph Hd Reflection 6.5x25mm - [id number] Implanted:Qty: 1 on 03/21/2022 by Blanco Jacinto MD at [facility] Implant Left: Hip [employer] [id number] / / [id number] Shll Acet R3 M/Hl 56mm - [id number] Implanted:Qty: 1 on 03/21/2022 by Blanco Jacinto MD at [facility] Implant Left: Hip [employer] 10/16/2031 [id number] / / [id number] Insurance MEDICARE A & B [facility] Advance Directives * CPR (Attempt to Resuscitate) (Latest Code Status on File) Date Activated Date Inactivated Comments 03/21/2022 8:01 PM 03/22/2022 4:15 PM Question Answer Comments Code Status (Patient has no pulse and is not breathing): CPR (Attempt to Resuscitate) Medical Interventions (Patie nt has pulse or is breathing): Full * CPR (Attempt to Resuscitate) Date Activated Date Inactivated Comments 11/15/2021 7:31 PM 11/16/2021 4:12 PM Question Answer Comments Code Status (Patient has no pulse and is not breathing): CPR (Attempt to Resuscitate) Medical Interventions (Patie nt has pulse or is breathing): Full Care Teams Backing In Machine Tender Relationship Specialty Start Date End Date Miguel Mak MD [address] [facility] [address] [facility] [place] [id number] PCP - General Internal Medicine 11/02/21
--- NOTE | 2025-01-27 14:00 | MM_ITS ---
PROCEDURE INFORMATION: Exam: MG Bilateral Screening 3D Mammography Exam date and time: 01/27/2025 1:49 PM Age: 69 years old Clinical indication: Screening examination. TECHNIQUE: Imaging protocol: Bilateral Screening tomosynthesis and 2D mammography including computer-aided detection (CAD) when performed. COMPARISON: No relevant prior studies available. FINDINGS: MAMMOGRAPHY: Breast composition: There are scattered areas of fibroglandular density. Mass: None. Architectural distortion: None. Calcifications: No suspicious calcifications. Asymmetric density: None. Skin thickening: None. Axillary adenopathy: None. IMPRESSION: No mammographic evidence of malignancy. Annual screening is recommended unless otherwise clinically indicated. ASSESSMENT: BI-RADS Category 1: Negative.
== END 2025-01-27 23:59 | disposition home or self-care (01) ==
LOC: RAD 13:26
PROVIDERS: PCP Internal Medicine; Visit Provider Internal Medicine
DX: Z12.31 Encounter for screening mammogram for malignant neoplasm of breast (principal); R92.323 Mammographic fibroglandular density, bilateral breasts
CPT/HCPCS: 77063; 77067